=== PATIENT | female | born 1975 | race Caucasian/White ===

== ENCOUNTER 2016-06-02 21:11 | Emergency (ER) | payer OTHER ==
[2016-06-02 21:20] VITALS: RESP 16
[2016-06-02] MEDS ORDERED: ONDANSETRON 4 MG/2 ML VIAL IVP STA (21:45)
[2016-06-02] MEDS ORDERED: SODIUM CHLORIDE 0.9% 1,000 ML IV ONE (21:45)
--- NOTE | 2016-06-02 22:04 | ED ---
General Adult HPI - General Chief complaint: Neuro Symptoms/Deficit Stated complaint: light-headedness Time Seen by Provider: 06/02/16 21:27 Source: patient, EMS Mode of arrival: EMS Limitations: no limitations - History of Present Illness Initial comments: This is a 41-year-old female presents emergency department for lightheadedness. She states that it started this evening. She states that she was going to let her dogs out and also became very lightheaded and felt like she is going to pass out. She did not have a syncopal event. She sat down in her chair and had persistent lightheadedness and also had persistent lightheadedness when she laid down in her bed so she became concerned and decided come emergency department. She says that she has some associated nausea however has not vomited. She's been having a normal appetite. She does admit to urinary frequency however no dysuria. No vaginal bleeding or discharge. No vertigo or ataxia. No other complaints. - Related Data Home Medications Medication Instructions Recorded Confirmed Naproxen 500 mg PO Q12HR 06/02/16 06/02/16 Propranolol [Inderal] 10 mg PO BID 06/02/16 06/02/16 buPROPion SR [Wellbutrin Sr] 150 mg PO QAM 06/02/16 06/02/16 traZODone HCL [Desyrel] 100 mg PO HS 06/02/16 06/02/16 Previous Rx's Medication Instructions Recorded Nitrofurantoin Monohyd/M-Cryst 100 mg PO Q12HR #14 cap 06/02/16 [Macrobid] Allergies Allergy/AdvReac Type Severity Reaction Status Date / Time No Known Allergies Allergy Verified 06/02/16 21:26 Review of Systems ROS Statement: Those systems with pertinent positive or pertinent negative responses have been documented in the HPI. ROS Other: All systems not noted in ROS Statement are negative. Past Medical History Additional Past Medical History / Comment(s): scoliosis, heart murmur History of Any Multi-Drug Resistant Organisms: None Reported Past Surgical History: Appendectomy, Hernia Repair, Tubal Ligation Past Psychological History: Depression Smoking Status: Never smoker Past Alcohol Use History: None Reported Past Drug Use History: None Reported General Exam - General Exam Comments Initial Comments: Constitutional: Awake alert Appears comfortable Head: Normocephalic atraumatic Eyes: no conjunctival injection No scleral icterus EOMI Neck: No JVD Supple Heart: Regular rate rhythm normal S1-S2 no murmurs Lungs: Clear to auscultation bilaterally No wheezing No rales Abdomen: Soft nondistended nontender Extremities: Non edematous DP pulses intact Radial pulses intact Neuro: A&Ox3 nerves II through XII are grossly intact, 5 out of 5 strength in upper and lower extremities bilaterally, normal finger to nose and heel to pack testing, no ataxia with gait. Psych: Appropriate mood and affect Limitations: no limitations Course Vital Signs 06/02/16 21:15 Temperature 98.7 F Pulse Rate 74 Respiratory 16 Rate Blood Pressure 159/78 O2 Sat by Pulse 100 Oximetry EKG Findings - EKG Comments: EKG Findings:: EKG showing normal sinus rhythm with a rate of 70. No ST segment changes or T-wave inversions. QTC is 421. Other intervals are normal. No ectopy. Medical Decision Making - Medical Decision Making Is a 41-year-old female who presents emergency department for lightheadedness. The patient was evaluated and had no focal neurologic findings. She is given fluids and had improvement in her symptoms. She is able to ambulate around the department with complete resolution of symptoms. She also complained of urinary frequency. Her urine was suspicious for possible urinary tract infection. Given her symptoms of going to treat her with Macrobid twice a day for 7 days. She can follow with her primary doctor for reevaluation. She can return if she has worsening symptoms. All questions were answered. - Lab Data Result diagrams: 06/02/16 22:09 06/02/16 22:09 Lab Results 06/02/16 06/02/16 06/02/16 Range/Units 22:09 22:09 22:09 WBC 9.4 (3.8-10.6) k/uL RBC 4.78 (3.80-5.40) m/uL Hgb 13.8 (11.4-16.0) gm/dL Hct 40.6 (34.0-46.0) % MCV 85.0 (80.0-100.0) fL MCH 28.8 (25.0-35.0) pg MCHC 33.9 (31.0-37.0) g/dL RDW 12.4 (11.5-15.5) % Plt Count 313 (150-450) k/uL Neutrophils % 64 % Lymphocytes % 19 % Monocytes % 4 % Eosinophils % 10 % Basophils % 1 % Neutrophils # 6.0 (1.3-7.7) k/uL Lymphocytes # 1.8 (1.0-4.8) k/uL Monocytes # 0.4 (0-1.0) k/uL Eosinophils # 1.0 H (0-0.7) k/uL Basophils # 0.1 (0-0.2) k/uL Sodium 139 (137-145) mmol/L Potassium 3.9 (3.5-5.1) mmol/L Chloride 106 (98-107) mmol/L Carbon Dioxide 25 (22-30) mmol/L Anion Gap 8 mmol/L BUN 19 H (7-17) mg/dL Creatinine 0.74 (0.52-1.04) mg/dL Est GFR (MDRD) Af Amer >60 (>60 ml/min/1.73 sqM) Est GFR (MDRD) Non-Af >60 (>60 ml/min/1.73 sqM) Glucose 75 (74-99) mg/dL Calcium 9.1 (8.4-10.2) mg/dL Magnesium 1.8 (1.6-2.3) mg/dL Urine Color Urine Appearance (Clear) Urine pH (5.0-8.0) Ur Specific [place] (1.001-1.035) Urine Protein (Negative) Urine Glucose (UA) (Negative) Urine Ketones (Negative) Urine Blood (Negative) Urine Nitrate (Negative) Urine Bilirubin (Negative) Urine Urobilinogen (<2.0) mg/dL Ur Leukocyte Esterase (Negative) Urine RBC (0-5) /hpf Urine WBC (0-5) /hpf Ur Squamous Epith Cells (0-4) /hpf Urine Mucus (None) /hpf Urine HCG, Qual Not Detected (Not Detectd) 06/02/16 Range/Units 22:09 WBC (3.8-10.6) k/uL RBC (3.80-5.40) m/uL Hgb (11.4-16.0) gm/dL Hct (34.0-46.0) % MCV (80.0-100.0) fL MCH (25.0-35.0) pg MCHC (31.0-37.0) g/dL RDW (11.5-15.5) % Plt Count (150-450) k/uL Neutrophils % % Lymphocytes % % Monocytes % % Eosinophils % % Basophils % % Neutrophils # (1.3-7.7) k/uL Lymphocytes # (1.0-4.8) k/uL Monocytes # (0-1.0) k/uL Eosinophils # (0-0.7) k/uL Basophils # (0-0.2) k/uL Sodium (137-145) mmol/L Potassium (3.5-5.1) mmol/L Chloride (98-107) mmol/L Carbon Dioxide (22-30) mmol/L Anion Gap mmol/L BUN (7-17) mg/dL Creatinine (0.52-1.04) mg/dL Est GFR (MDRD) Af Amer (>60 ml/min/1.73 sqM) Est GFR (MDRD) Non-Af (>60 ml/min/1.73 sqM) Glucose (74-99) mg/dL Calcium (8.4-10.2) mg/dL Magnesium (1.6-2.3) mg/dL Urine Color Yellow Urine Appearance Cloudy H (Clear) Urine pH 5.5 (5.0-8.0) Ur Specific [place] 1.025 (1.001-1.035) Urine Protein Trace H (Negative) Urine Glucose (UA) Negative (Negative) Urine Ketones Negative (Negative) Urine Blood Negative (Negative) Urine Nitrate Negative (Negative) Urine Bilirubin Negative (Negative) Urine Urobilinogen <2.0 (<2.0) mg/dL Ur Leukocyte Esterase Small H (Negative) Urine RBC 3 (0-5) /hpf Urine WBC 6 H (0-5) /hpf Ur Squamous Epith Cells 5 H (0-4) /hpf Urine Mucus Rare H (None) /hpf Urine HCG, Qual (Not Detectd) Disposition Clinical Impression: UTI (urinary tract infection), Pre-syncope Disposition: HOME SELF-CARE Condition: Stable Instructions: Urinary Tract Infection in Women (ED) Prescriptions: Nitrofurantoin Monohyd/M-Cryst [Macrobid] 100 mg PO Q12HR #14 cap Referrals: Charity Dang MD [Primary Care Provider] - 1-2 days
[2016-06-02 22:13] LABS: Basophils # (A) 0.1 k/uL (0-0.2); Basophils % (A) 1 %; CH 29.8; CHCM 35.3; Eosinophils % (A) 10 %; HCT 40.6 % (34.0-46.0); HDW 2.61; HGB 13.8 gm/dL (11.4-16.0); Luc # (Auto) 0.13; Luc % (Auto) 1; Lymphocytes # (A) 1.8 k/uL (1.0-4.8); Lymphocytes % (A) 19 %; MCH 28.8 pg (25.0-35.0); MCHC 33.9 g/dL (31.0-37.0); Mean Platelet Volume 7.3; Monocytes # (A) 0.4 k/uL (0-1.0); Monocytes % (A) 4 %; Neutrophils % (A) 64 %; RBC 4.78 m/uL (3.80-5.40); RDW 12.4 % (11.5-15.5); WBC 9.4 k/uL (3.8-10.6)
[2016-06-02 22:18] LABS: Appearance,Urine Cloudy (Clear); Bilirubin,Urine Negative (Negative); Glucose,Urine (UA) Negative (Negative); Ketones,Urine Negative (Negative); Leukocyte Esterase,Urine Small (Negative); Mucus,Urine Rare /hpf; Nitrite,Urine Negative (Negative); PH, Urine 5.5 (5.0-8.0); Particle Count 8482; Protein,Urine Trace (Negative); RBC,Urine 3 /hpf (0-5); Specific Gravity,Urine 1.025 (1.001-1.035); Squamous Epithelial Cell,Urine 5 /hpf (0-4); UA Billing (MACRO vs. MICRO) MICRO; Urobilinogen,Urine <2.0 mg/dL (<2.0); WBC,Urine 6 /hpf (0-5)
[2016-06-02 22:22] LABS: Anion Gap 8 mmol/L; Blood Urea Nitrogen 19 mg/dL (7-17); Calcium 9.1 mg/dL (8.4-10.2); Carbon Dioxide 25 mmol/L (22-30); Chloride 106 mmol/L (98-107); Glucose 75 mg/dL (74-99); Magnesium 1.8 mg/dL (1.6-2.3); Non-African American GFR(MDRD) >60 (>60 ml/min/1.73 sqM); Potassium 3.9 mmol/L (3.5-5.1); Sodium 139 mmol/L (137-145)
[2016-06-02 22:59] VITALS: BP 118/78; PULSE 87; TEMP 97.6
== END 2016-06-02 22:58 | disposition home or self-care (01) ==
LOC: EC 21:11
DX: N39.0 Urinary tract infection, site not specified (principal); R55 Syncope and collapse; Z79.899 Other long term (current) drug therapy; F32.9 Major depressive disorder, single episode, unspecified
CPT/HCPCS: 36415; 93005; 80048; 83735; 85025; 81001; 81025; 99284; 96374; 96361; J2405

== ENCOUNTER → 2017-01-19 | Outpatient (CLI) | payer OTHER ==
[2017-01-19 16:39] LABS: Blood Urea Nitrogen 15 mg/dL (7-17); Non-African American GFR(MDRD) >60 (>60 ml/min/1.73 sqM)
--- NOTE | 2017-01-19 21:13 | MR ---
EXAMINATION TYPE: MR lumbar spine wo con DATE OF EXAM: 01/19/2017 COMPARISON: NONE HISTORY: Low back pain per order. Pain since December 2016 per patient. TECHNIQUE: Multiplanar, multisequence imaging of the lumbar spine is performed without IV contrast. FINDINGS: Sagittal images of the lumbar spine show vertebral body heights and alignment to appear sat isfactory. There is disc desiccation at L4-L5 and L5-S1 levels. Disc space heights are maintained. No large posterior disc herniations are seen on sagittal images. The conus medullaris is slightly high in position ending at inferior T12 level. No suspicious signal is present. No abnormal clumping of l umbosacral nerve roots is seen. The bone marrow signal intensity is within normal limits. No signific ant spurring is noted. Axial images beginning at labeled T11-T12 level which appears within normal limits. Axial images at T 12-L1, L1-L2, and L2-L3 levels are felt within normal limits. Axial images at L3-L4 level show mild facet degenerative changes bilaterally on axial image 12, bilat eral neural foramina remain patent. Axial images at L4-L5 level show mild to moderate facet degenerative changes bilaterally. There is no significant disc herniation. Spinal canal is preserved. Bilateral neural foramina are patent. Axial images at L5-S1 level show mild to moderate right greater than left facet degenerative changes. No significant disc herniation is seen. Spinal canal is preserved. Bilateral neural foramina remain patent. Paraspinal muscle bulk is fairly well preserved. No suspicious retroperitoneal findings are noted. IMPRESSION: Some multilevel facet degenerative changes in the mid to lower lumbar spine as detailed a taylor.
--- NOTE | 2017-01-19 21:18 | MR ---
EXAMINATION TYPE: MR brain wo/w con DATE OF EXAM: 01/19/2017 COMPARISON: MRI brain January 28, 2016. HISTORY: White matter changes TECHNIQUE: Multiplanar, multisequence images of the brain and brainstem is performed without and with IV contras t, utilizing 9.5 mL intravenous Gadavist gadolinium contrast is administered intravenously. Demyelin ating disease protocol with additional Sagittal Flair sequence performed. FINDINGS: T2 Lesions Present : Yes Approximate Number of Lesions: Approximately 10-15 Locations Identified : Predominantly deep and periventricular lesions Size of Reference Lesion(s): 1. 0.4 cm x 0.3 cm x 0.3 cm on axial image 19 and sagittal image 9 left posterior frontal deep white matter lesion at level of mcelroy radiata stable. Enhancing Lesion(s) Present: No Change from Prior: Stable accounting for technical differences Diffusion weighted images demonstrate no evidence of a recent infarct or other diffusion abnormality. There is no worrisome extra-axial fluid collection. The ventricular system and cisternal spaces ar e normal in size and appearance. The brain volume is age appropriate. Midline structures demonstrate normal morphology. The craniocervical junction appears within normal limits. Post contrast images demonstrate no abnormal enhancement. The dural venous sinuses appear pa tent. The visualized sinuses are clear and the globes are intact. IMPRESSION: Mild nonspecific white matter changes redemonstrated felt stable. No new or enhancing les ions are seen.
== END | disposition home or self-care (01) ==
LOC: RADMRIMAIN 16:04
PROVIDERS: ATTEND Nurse Practitioner Acute Care
DX: M47.816 Spondylosis without myelopathy or radiculopathy, lumbar region (principal); R90.82 White matter disease, unspecified
CPT/HCPCS: 82565; 84520; 70553; 72148; A9577

== ENCOUNTER 2017-05-24 19:47 | Emergency (ER) | payer OTHER ==
[2017-05-24 19:53] VITALS: RESP 18
[2017-05-24] MEDS ORDERED: LORazepam 2 MG/ML INJ IV STA (20:08)
[2017-05-24] MEDS ORDERED: MECLIZINE 12.5 MG TAB PO STA (20:08)
[2017-05-24] MEDS ORDERED: SODIUM CHLORIDE 0.9% 1,000 ML IV STA (20:08)
--- NOTE | 2017-05-24 20:26 | ED ---
Dizziness HPI - General Chief Complaint: Dizziness Stated Complaint: dizziness Time Seen by Provider: 05/24/17 19:56 Source: patient, RN notes reviewed Mode of arrival: wheelchair Limitations: no limitations - History of Present Illness Initial Comments: This is a 42-year-old female presents to the emergency department chief complaint of dizziness. Patient states that approximately 5:30/6 PM this evening, after eating dinner she was sitting down relaxing in her chair. She states that she suddenly felt like the room was spinning. She admits to associated nausea. Patient states that dizziness is made worse when sitting up and walking. She states that sometimes she has some double vision. Denies any hearing changes. Patient states she has had a similar episode in the past but did not seek medical care. Denies fever, chills, chest pain, shortness of breath , abdominal pain, vomiting, constipation or diarrhea, dysuria or hematuria, numbness or tingling, or headache. - Related Data Home Medications Medication Instructions Recorded Confirmed Naproxen 500 mg PO BID 06/02/16 05/24/17 Propranolol [Inderal] 40 mg PO BID 05/24/17 05/24/17 Venlafaxine HCl [Effexor XR] 150 mg PO DAILY@0800 05/24/17 05/24/17 risperiDONE [RisperDAL] 1 mg PO HS 05/24/17 05/24/17 traZODone HCL 150 mg PO HS 05/24/17 05/24/17 Previous Rx's Medication Instructions Recorded Meclizine [Antivert] 25 mg PO BID #10 tab 05/24/17 Allergies Allergy/AdvReac Type Severity Reaction Status Date / Time No Known Allergies Allergy Verified 05/24/17 20:12 Review of Systems ROS Statement: Those systems with pertinent positive or pertinent negative responses have been documented in the HPI. ROS Other: All systems not noted in ROS Statement are negative. Past Medical History Additional Past Medical History / Comment(s): scoliosis, heart murmur History of Any Multi-Drug Resistant Organisms: None Reported Past Surgical History: Appendectomy, Hernia Repair, Tubal Ligation Past Psychological History: Anxiety, Depression Smoking Status: Never smoker Past Alcohol Use History: None Reported Past Drug Use History: None Reported General Exam - General Exam Comments Initial Comments: General: Awake and alert, well-developed; in no apparent distress. HEENT: Head atraumatic, normocephalic. Pupils are equal, round and reactive to light. Extraocular movements intact. No nystagmus noted. Oropharynx moist without erythema or exudate. Bilateral TMs pearly without effusion. Neck: Supple. Normal ROM. Cardiovascular: Regular rate and rhythm. No murmurs, rubs or gallops. Chest symmetrical. Respiratory: Lungs clear to auscultation bilaterally. No wheezes, rales or rhonchi. Normal respiratory effort with no use of accessory muscles. Musculoskeletal: Normal ROM, no tenderness bilateral upper and lower extremities. Skin: [place], warm and dry without rashes or lesions. Neurological: Alert and oriented x3. CN II-XII grossly intact. No focal neuro deficits. Psychiatric: Normal mood and affect. No overt signs of depression or anxiety noted. Limitations: no limitations Course Vital Signs 05/24/17 19:50 Temperature 97.9 F Pulse Rate 57 L Respiratory 18 Rate Blood Pressure 138/76 O2 Sat by Pulse 100 Oximetry - Reevaluation(s) Reevaluation #1: After given a dose of meclizine and Ativan, patient states that she is no longer experiencing any dizziness. She is lying on the ED stretcher reading a magazine. 05/24/17 21:06 05/24/17 21:08 Medical Decision Making - Medical Decision Making This is a 42-year-old female who presented to the emergency department with chief complaint of dizziness. Patient had sudden onset of dizziness, with feeling like the room was spinning. She admitted to associated nausea. After given Ativan and meclizine in the emergency department, patient admits to feeling better is no longer experiencing any dizziness. She will be discharged home with a prescription for meclizine. She is to follow-up with her primary care provider in 1-2 days. Patient is in agreement with plan and voices understanding. All questions were answered. Disposition Clinical Impression: Peripheral vertigo Disposition: HOME SELF-CARE Condition: Good Instructions: Vertigo (ED) Additional Instructions: Please take medications as prescribed. Please follow up with primary care provider within 1-2 days. Return to emergency department if symptoms should worsen or any concerns arise. Prescriptions: Meclizine [Antivert] 25 mg PO BID #10 tab Referrals: Charity Dang MD [Primary Care Provider] - 1-2 days Time of Disposition: 21:26
[2017-05-24 21:42] VITALS: BP 143/97; PULSE 65; TEMP 97.6
== END 2017-05-24 21:43 | disposition home or self-care (01) ==
LOC: EC 19:47
DX: H81.399 Other peripheral vertigo, unspecified ear (principal); H53.2 Diplopia; F32.9 Major depressive disorder, single episode, unspecified; F41.9 Anxiety disorder, unspecified; Z79.1 Long term (current) use of non-steroidal anti-inflammatories (NSAID); Z79.899 Other long term (current) drug therapy; Z87.39 Personal history of other diseases of the musculoskeletal system and connective tissue; Z86.79 Personal history of other diseases of the circulatory system
CPT/HCPCS: 99283; 96374; 96361; J2060

== ENCOUNTER 2017-10-08 19:11 | Emergency (ER) | payer OTHER ==
[2017-10-08] MEDS ORDERED: SODIUM CHLORIDE 0.9% 1,000 ML IV ONE (19:42)
[2017-10-08 20:02] LABS: Basophils # (A) 0.1 k/uL (0-0.2); Basophils % (A) 1 %; Eosinophils # (A) 0.4 k/uL (0-0.7); Eosinophils % (A) 5 %; HCT 40.9 % (34.0-46.0); HGB 14.1 gm/dL (11.4-16.0); Lymphocytes % (A) 22 %; MCHC 34.4 g/dL (31.0-37.0); MCV 84.2 fL (80.0-100.0); Monocytes # (A) 0.4 k/uL (0-1.0); Monocytes % (A) 4 %; Neutrophils # (A) 6.2 k/uL (1.3-7.7); Neutrophils % (A) 67 %; Platelet Count 364 k/uL (150-450); RBC 4.86 m/uL (3.80-5.40); RDW 12.6 % (11.5-15.5); WBC 9.3 k/uL (3.8-10.6)
[2017-10-08 20:18] LABS: Anion Gap 15 mmol/L; Blood Urea Nitrogen 23 mg/dL (7-17); Calcium 9.7 mg/dL (8.4-10.2); Carbon Dioxide 21 mmol/L (22-30); Chloride 104 mmol/L (98-107); Glucose 86 mg/dL (74-99); Potassium 3.9 mmol/L (3.5-5.1); Sodium 140 mmol/L (137-145)
--- NOTE | 2017-10-08 21:04 | ED ---
General Adult HPI - General Chief complaint: Recheck/Abnormal Lab/Rx Stated complaint: High BP Time Seen by Provider: 10/08/17 19:34 Source: patient Mode of arrival: ambulatory Limitations: no limitations - History of Present Illness Initial comments: 42-year-old female with past medical history of hypertension presented for evaluation of abnormal blood pressure measurement at [facility] as well as symptoms of near sink be recently. She states that when she was at [facility] her diastolic was in the 120s which prompted her to come the ED for further evaluation at the recommendation of one of the employees. Upon arrival she had a normal blood pressure reading however she further went on to state that she has been having some episodes of near syncope/lightheadedness for the last few days. She states that these will last anywhere from 5-10 minutes she' ll feel like she is about to pass out. She denies any sensation of the room spinning or head spinning. She does not treat these episodes with anything and she states that they go away spontaneously. There is no associated symptoms with him and she denies any chest pain, shortness of breath, nausea/vomiting, diaphoresis, or abdominal pain. She is never happened before and does not been evaluated for them. - Related Data Home Medications Medication Instructions Recorded Confirmed Naproxen 500 mg PO BID PRN 06/02/16 10/08/17 Venlafaxine HCl [Effexor XR] 150 mg PO DAILY@0800 05/24/17 10/08/17 risperiDONE [RisperDAL] 1 mg PO HS 05/24/17 10/08/17 traZODone HCL 150 mg PO HS 05/24/17 10/08/17 Propranolol [Inderal] 10 mg PO BID 10/08/17 10/08/17 Allergies Allergy/AdvReac Type Severity Reaction Status Date / Time No Known Allergies Allergy Verified 10/08/17 20:13 Review of Systems ROS Statement: Those systems with pertinent positive or pertinent negative responses have been documented in the HPI. ROS Other: All systems not noted in ROS Statement are negative. Constitutional: Denies: fever, chills Eyes: Denies: eye pain, vision change ENT: Denies: ear pain, throat pain Respiratory: Denies: cough, dyspnea Cardiovascular: Denies: chest pain, palpitations Endocrine: Denies: fatigue, polydipsia, polyuria Gastrointestinal: Denies: abdominal pain, nausea, vomiting Genitourinary: Denies: urgency, dysuria Musculoskeletal: Denies: back pain, arthralgia, myalgia Skin: Denies: rash, lesions Neurological: Reports: other (Near syncope). Denies: headache, weakness Psychiatric: Denies: anxiety, depression Hematological/Lymphatic: Denies: easy bleeding, easy bruising Past Medical History Additional Past Medical History / Comment(s): scoliosis, heart murmur History of Any Multi-Drug Resistant Organisms: None Reported Past Surgical History: Appendectomy, Hernia Repair, Tubal Ligation Past Psychological History: Anxiety, Depression Smoking Status: Never smoker Past Alcohol Use History: None Reported Past Drug Use History: None Reported General Exam Limitations: no limitations General appearance: alert, in no apparent distress Head exam: Present: atraumatic, normocephalic, normal inspection Eye exam: Present: normal appearance, PERRL, EOMI. Absent: scleral icterus, conjunctival injection, periorbital swelling ENT exam: Present: normal exam, mucous membranes moist Neck exam: Present: normal inspection. Absent: tenderness, meningismus, lymphadenopathy Respiratory exam: Present: normal lung sounds bilaterally. Absent: respiratory distress, wheezes, rales, rhonchi, stridor Cardiovascular Exam: Present: normal rhythm, tachycardia GI/Abdominal exam: Present: soft, normal bowel sounds. Absent: distended, tenderness, guarding, rebound, rigid Rectal exam: Present: deferred Extremities exam: Present: normal inspection, full ROM, normal capillary refill. Absent: tenderness, pedal edema, joint swelling, calf tenderness Back exam: Present: normal inspection Neurological exam: Present: alert, oriented X3, CN II-XII intact Psychiatric exam: Present: normal affect, normal mood Skin exam: Present: warm, dry, intact, normal color. Absent: rash Course Vital Signs 10/08/17 10/08/17 10/08/17 19:18 20:39 20:47 Temperature 98.4 F Pulse Rate 120 H 95 Pulse Rate [ 103 H Right Sitting] Pulse Rate [ 100 Right Standing] Pulse Rate [ 95 Right Supine] Respiratory 18 18 16 Rate Blood Pressure 121/76 131/77 Blood Pressure 128/73 [Right Arm Sitting] Blood Pressure 136/80 [Right Arm Standing] Blood Pressure 117/68 [Right Arm Supine] O2 Sat by Pulse 97 97 97 Oximetry EKG Findings - EKG Comments: EKG Findings:: #Sugar with a ventricular rate of 97. Medical Decision Making - Medical Decision Making 42-year-old female presented for evaluation of hypotension and near syncope. On physical examination there are no acute abnormalities noted. The patient is GCS of 15 and O 4 and cranial nerves II through XII are intact without focal neurologic deficit. Lungs are clear to auscultation bilaterally and the abdomen is soft and non-peritoneal without signs of guarding rigidity or rebound. Exam is benign. Labs obtained which showed no acute abnormalities and EKG is shown below. She is in related to the department and was at baseline and never had any episodes of near-syncope. She was informed of all results and through shared decision making it was determined that she would be discharged with instructions to follow-up with her primary care physician but return to this facility if her symptoms should worsen or persist. The patient acknowledged an understanding of all information provided and agreed with this plan of care. - Lab Data Result diagrams: 10/08/17 19:51 10/08/17 19:51 Lab Results 10/08/17 10/08/17 Range/Units 19:51 19:51 WBC 9.3 (3.8-10.6) k/uL RBC 4.86 (3.80-5.40) m/uL Hgb 14.1 (11.4-16.0) gm/dL Hct 40.9 (34.0-46.0) % MCV 84.2 (80.0-100.0) fL MCH 29.0 (25.0-35.0) pg MCHC 34.4 (31.0-37.0) g/dL RDW 12.6 (11.5-15.5) % Plt Count 364 (150-450) k/uL Neutrophils % 67 % Lymphocytes % 22 % Monocytes % 4 % Eosinophils % 5 % Basophils % 1 % Neutrophils # 6.2 (1.3-7.7) k/uL Lymphocytes # 2.0 (1.0-4.8) k/uL Monocytes # 0.4 (0-1.0) k/uL Eosinophils # 0.4 (0-0.7) k/uL Basophils # 0.1 (0-0.2) k/uL Sodium 140 (137-145) mmol/L Potassium 3.9 (3.5-5.1) mmol/L Chloride 104 (98-107) mmol/L Carbon Dioxide 21 L (22-30) mmol/L Anion Gap 15 mmol/L BUN 23 H (7-17) mg/dL Creatinine 0.81 (0.52-1.04) mg/dL Est GFR (CKD-EPI)AfAm >90 (>60 ml/min/1.73 sqM) Est GFR (CKD-EPI)NonAf 89 (>60 ml/min/1.73 sqM) Glucose 86 (74-99) mg/dL Calcium 9.7 (8.4-10.2) mg/dL Disposition Clinical Impression: Lightheaded Disposition: HOME SELF-CARE Condition: Stable Instructions: Near Syncope (ED), Lightheadedness (ED) Additional Instructions: Please follow up with her primary care physician within the next 24 hours for further treatment and evaluation. If she continued to have worsening symptoms that should include chest pain, shortness breath, nausea, vomiting, diaphoresis , fevers, chills with your lightheadedness and dizziness presents return to the ED as well. Is patient prescribed a controlled substance at d/c from ED?: No Referrals: Charity Dang MD [Primary Care Provider] - 1-2 days Time of Disposition: 21:04
[2017-10-08 21:23] VITALS: BP 136/80; PULSE 89; RESP 18; TEMP 98.2
== END 2017-10-08 21:22 | disposition home or self-care (01) ==
LOC: EC 19:11
DX: R42 Dizziness and giddiness (principal); R40.2412 Glasgow coma scale score 13-15, at arrival to emergency department; R00.0 Tachycardia, unspecified; F32.9 Major depressive disorder, single episode, unspecified; F41.9 Anxiety disorder, unspecified; Z79.899 Other long term (current) drug therapy; Z86.79 Personal history of other diseases of the circulatory system
CPT/HCPCS: 36415; 80048; 85025; 93005; 96360; 99283

== ENCOUNTER → 2018-01-27 | Outpatient (CLI) | payer OTHER ==
--- NOTE | 2018-01-27 18:18 | MR ---
EXAMINATION TYPE: MR brain wo/w con DATE OF EXAM: 01/27/2018 COMPARISON: 01/19/2017 HISTORY: MS protocol, visual disturbance, compare to prior MR 01-19-17 CONTRAST: Performed utilizing 9 mL intravenous Gadavist gadolinium contrast. TECHNIQUE: Multiplanar, multisequence imaging of the brain is performed on a 3.0 Audra magnet. Demye linating disease protocol with additional Sagittal Flair sequence is performed. Study is performed wi thin 24 hours of arrival to the hospital. FINDINGS: T2 White Matter Lesions Present : Yes Approximate Number of Lesions: Multiple scattered Locations Identified : Periventricular subcortical and centrum semiovale Size of Largest Lesion(s): 1. 0.5 x 0.5 x 0.3 cm. Location: Left mcelroy radiata parietal lobe Sequence 501 Image 19 (axial) and Sequence 601 Image 7 (sagittal). This has enlarged 1 mm from the comparison. 2. 0.4 x 0.5 x 0.7 cm. Location: Right mcelroy radiata Sequence 501 Image 18 (axial) and Sequence 60 1 Image 22 (sagittal). This appears stable. Enhancing Lesion(s) Present: No Change from Prior: Number of lesions appear stable. The left reference is increased in size. Majority of the lesions are stable. Prior right frontal lobe has diminished in size. Series 501 image 18. Diffusion-weighted imaging is performed. No abnormal hyperintensity is present to suggest an acute i ntracranial infarct or acute ischemic change. Ventricles and sulci are appropriate for the patient age. The right A1 segment is hypoplastic. Normal vascular flow voids are otherwise present. No abnormal enhancement is present on post contrast images. . The visualized sinuses are clear. Visu alized orbits are unremarkable. IMPRESSION: 1. Number of lesions appear stable. There is waxing and waning of lesion sizes compared to 01/19/2017 .
== END | disposition home or self-care (01) ==
LOC: RADMRIMAIN 16:06
PROVIDERS: ATTEND Psychiatry & Neurology Neurology
DX: G93.89 Other specified disorders of brain (principal); H53.9 Unspecified visual disturbance
CPT/HCPCS: 70553; A9581

== ENCOUNTER 2018-02-07 17:36 | Emergency (ER) | payer OTHER ==
--- NOTE | 2018-02-07 18:28 | ED ---
Psych HPI - General Chief Complaint: Psychiatric Symptoms Stated Complaint: SUICIDAL, OFF MEDS Time Seen by Provider: 02/07/18 18:02 Source: patient, RN notes reviewed Mode of arrival: ambulatory Limitations: no limitations - History of Present Illness Initial Comments: This is a 42-year-old female who presents to the emergency department for mental health evaluation. Patient states that she has a history of depression. She states that she ran out of her medications 3 days ago because she did not have a refill. She states that she was taking Effexor, trazodone and Risperdal. She reports suicidal ideation without plan. Denies homicidal ideation. Denies auditory or visual hallucinations. He denies alcohol or illicit drug use. Denies any recent illnesses or infections. Denies fevers or chills, chest pain or shortness of breath, abdominal pain, nausea or vomiting. - Related Data Home Medications Medication Instructions Recorded Confirmed Naproxen 500 mg PO BID PRN 06/02/16 10/08/17 Venlafaxine HCl [Effexor XR] 150 mg PO DAILY@0800 05/24/17 10/08/17 risperiDONE [RisperDAL] 1 mg PO HS 05/24/17 10/08/17 traZODone HCL 150 mg PO HS 05/24/17 10/08/17 Propranolol [Inderal] 10 mg PO BID 10/08/17 10/08/17 Allergies Allergy/AdvReac Type Severity Reaction Status Date / Time No Known Allergies Allergy Verified 02/07/18 17:46 Review of Systems ROS Statement: Those systems with pertinent positive or pertinent negative responses have been documented in the HPI. ROS Other: All systems not noted in ROS Statement are negative. Past Medical History Additional Past Medical History / Comment(s): scoliosis, heart murmur History of Any Multi-Drug Resistant Organisms: None Reported Past Surgical History: Appendectomy, Hernia Repair, Tubal Ligation Past Psychological History: Anxiety, Depression, Schizoaffective Disorder Smoking Status: Never smoker Past Alcohol Use History: None Reported Past Drug Use History: None Reported General Exam - General Exam Comments Initial Comments: General: Awake and alert, well-developed; in no apparent distress. Disheveled in appearance. HEENT: Head atraumatic, normocephalic. Pupils are equal, round and reactive to light. Extraocular movements intact. Oropharynx moist without erythema or exudate. Neck: Supple. Normal ROM. Cardiovascular: Regular rate and rhythm. No murmurs, rubs or gallops. Chest symmetrical. Respiratory: Lungs clear to auscultation bilaterally. No wheezes, rales or rhonchi. Normal respiratory effort with no use of accessory muscles. Abdomen: Soft, non-tender, non-distended. No rigidity, rebound or guarding. Musculoskeletal: Normal ROM, no tenderness bilateral upper and lower extremities. Ambulating normally. Skin: [place], warm and dry without rashes or lesions. Neurological: Alert and oriented x3. CN II-XII grossly intact. Speech is fluent and answers are appropriate. No focal neuro deficits. Psychiatric: Anxious. Tearful. Normal judgment. Limitations: no limitations Course Vital Signs 02/07/18 02/07/18 17:41 21:18 Temperature 98 F 98.1 F Pulse Rate 79 65 Respiratory 18 16 Rate Blood Pressure 127/87 134/80 O2 Sat by Pulse 98 100 Oximetry Medical Decision Making - Medical Decision Making This is a 42-year-old female who presents to the emergency department with chief complaint of depression. Patient states she has been out of her antidepressants for the past 3 days. She admits to suicidal ideation without plans. Patient was evaluated by EPS who is recommending outpatient treatment. Patient is to follow up with [facility] tomorrow. She is to also follow up with Dr. Dang for medication refills. Patient contracts for safety and denies any suicidal plans. Her vital signs have been stable and she is in no acute distress. She will be discharged home at this time. She is in agreement and voices understanding. All questions were answered. - Lab Data Lab Results 02/07/18 Range/Units 18:00 Urine Opiates Screen Not Detected (NotDetected) Ur Oxycodone Screen Not Detected (NotDetected) Urine Methadone Screen Not Detected (NotDetected) Ur Propoxyphene Screen Not Detected (NotDetected) Ur Barbiturates Screen Not Detected (NotDetected) U Tricyclic Antidepress Not Detected (NotDetected) Ur Phencyclidine Scrn Not Detected (NotDetected) Ur Amphetamines Screen Not Detected (NotDetected) U Methamphetamines Scrn Not Detected (NotDetected) U Benzodiazepines Scrn Detected H (NotDetected) Urine Cocaine Screen Not Detected (NotDetected) U Marijuana (THC) Screen Not Detected (NotDetected) Disposition Clinical Impression: Depression Disposition: HOME SELF-CARE Condition: Good Instructions: Depression (ED) Additional Instructions: As discussed, please follow up with [facility] tomorrow. Please also follow-up with Dr. Dang for medication refills. Please follow up with primary care provider within 1-2 days. Return to emergency department if symptoms should worsen or any concerns arise. Is patient prescribed a controlled substance at d/c from ED?: No Referrals: Charity Dang MD [Primary Care Provider] - 1-2 days Time of Disposition: 21:36
[2018-02-07 19:00] LABS: Amphetamine Screen,Urine Not Detected (NotDetected); Barbiturate Screen,Urine Not Detected (NotDetected); Benzodiazepines Screen,Urine Detected (NotDetected); Cocaine Screen,Urine Not Detected (NotDetected); Methadone Screen, Urine Not Detected (NotDetected); Opiate Screen,Urine Not Detected (NotDetected); Oxycodone Screen, Urine Not Detected (NotDetected); Phencyclidine Screen,Urine Not Detected (NotDetected); Tricyclic Antidepressant,Urine Not Detected (NotDetected); Urn Cannabinoid Scrn Not Detected (NotDetected)
[2018-02-07 21:22] VITALS: BP 134/80; PULSE 65; RESP 16; TEMP 98.1
[2018-02-07] MEDS ORDERED: risperiDONE 2 MG TAB PO STA (21:32)
[2018-02-07] MEDS ORDERED: VENLAFAXINE HCL ER 75 MG CAP PO STA (21:33)
== END 2018-02-07 21:52 | disposition home or self-care (01) ==
LOC: EC 17:36
DX: F32.9 Major depressive disorder, single episode, unspecified (principal); R45.851 Suicidal ideations; F41.9 Anxiety disorder, unspecified; Z79.899 Other long term (current) drug therapy; Z86.79 Personal history of other diseases of the circulatory system
CPT/HCPCS: 80306; 82075; 99285

== ENCOUNTER → 2018-04-06 | Outpatient (CLI) | payer OTHER ==
[2018-04-06 23:39] LABS: Hemoglobin A1C 5.1 % (4.0-6.0)
== END | disposition home or self-care (01) ==
LOC: LABWHC1 11:41
PROVIDERS: ATTEND Psychiatry & Neurology Psychiatry
DX: F25.0 Schizoaffective disorder, bipolar type (principal); Z79.899 Other long term (current) drug therapy
CPT/HCPCS: 36415; 83036

== ENCOUNTER 2018-07-13 16:14 | Inpatient (IN) | payer MEDICAID, OTHER ==
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
[2018-07-13 17:17] LABS: Amphetamine Screen,Urine Not Detected (NotDetected); Barbiturate Screen,Urine Not Detected (NotDetected); Benzodiazepines Screen,Urine Not Detected (NotDetected); Cocaine Screen,Urine Not Detected (NotDetected); Methadone Screen, Urine Not Detected (NotDetected); Opiate Screen,Urine Not Detected (NotDetected); Oxycodone Screen, Urine Not Detected (NotDetected); Phencyclidine Screen,Urine Not Detected (NotDetected); Tricyclic Antidepressant,Urine Not Detected (NotDetected); Urn Cannabinoid Scrn Not Detected (NotDetected)
[2018-07-13 20:28] LABS: Acetaminophen <10.0 ug/mL; Alcohol <10 mg/dL; Anion Gap 4 mmol/L; Blood Urea Nitrogen 10 mg/dL (7-17); Calcium 9.3 mg/dL (8.4-10.2); Carbon Dioxide 30 mmol/L (22-30); Chloride 105 mmol/L (98-107); Glucose 113 mg/dL (74-99); Potassium 3.8 mmol/L (3.5-5.1); Salicylate <1.0 mg/dL; Sodium 139 mmol/L (137-145)
[2018-07-13 20:29] LABS: Basophils # (A) 0.1 k/uL (0-0.2); Basophils % (A) 2 %; Eosinophils # (A) 0.8 k/uL (0-0.7); Eosinophils % (A) 11 %; HCT 37.7 % (34.0-46.0); HGB 12.5 gm/dL (11.4-16.0); Lymphocytes # (A) 1.9 k/uL (1.0-4.8); Lymphocytes % (A) 26 %; MCH 29.1 pg (25.0-35.0); MCHC 33.1 g/dL (31.0-37.0); MCV 87.9 fL (80.0-100.0); Mean Platelet Volume 6.3; Monocytes # (A) 0.4 k/uL (0-1.0); Monocytes % (A) 6 %; Neutrophils # (A) 3.8 k/uL (1.3-7.7); Neutrophils % (A) 53 %; Platelet Count 311 k/uL (150-450); RBC 4.29 m/uL (3.80-5.40); RDW 12.9 % (11.5-15.5); WBC 7.2 k/uL (3.8-10.6)
[2018-07-13] MEDS ORDERED: DOCUSATE ORAL SOLN 100 MG/10 ML CUP PO PRN (21:20)
[2018-07-13] MEDS ORDERED: LORazepam 1 MG TAB PO PRN (21:47)
[2018-07-13] MEDS ORDERED: ZIPRASIDONE 20 MG VIAL IM PRN (21:47)
[2018-07-13] MEDS ORDERED: ACETAMINOPHEN TAB 325 MG TAB PO PRN (21:47)
[2018-07-13] MEDS ORDERED: MAG HYDROX/AL HYDROX/SIMETH 30 ML CUP PO PRN (21:47)
[2018-07-13] MEDS ORDERED: MAGNESIUM HYDROXIDE 2,400 MG/10 ML CUP PO PRN (21:47)
[2018-07-13] MEDS ORDERED: LORazepam 2 MG/ML INJ IM PRN (21:50)
[2018-07-13] MEDS: risperiDONE 1 MG TAB PO SCH (22:18)
[2018-07-14] MEDS ORDERED: NICOTINE 14MG/24HR PATCH TRANSDERM SCH (09:00)
[2018-07-14] MEDS: ASPIRIN 81 MG PO SCH (09:10)
[2018-07-14] MEDS: VENLAFAXINE HCL ER 75 MG CAP PO SCH (09:10)
[2018-07-14 09:31] LABS: ALT 21 U/L (9-52); AST 17 U/L (14-36); Alkaline Phosphatase 62 U/L (38-126); Anion Gap 8 mmol/L; Blood Urea Nitrogen 11 mg/dL (7-17); Calcium 9.1 mg/dL (8.4-10.2); Carbon Dioxide 27 mmol/L (22-30); Chloride 105 mmol/L (98-107); Cholesterol 171 mg/dL (<200); Glucose 135 mg/dL (74-99); HDL Cholesterol 48 mg/dL (40-60); LDL Cholesterol,Calculated 96 mg/dL (0-99); Potassium 4.1 mmol/L (3.5-5.1); Sodium 140 mmol/L (137-145); Total Bilirubin 0.5 mg/dL (0.2-1.3); Total Protein 7.2 g/dL (6.3-8.2); Triglycerides 137 mg/dL (<150)
[2018-07-14] MEDS ORDERED: traZODone HCL 100 MG TAB PO PRN (13:57)
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
[2018-07-14] MEDS ORDERED: IBUPROFEN 400 MG TAB PO PRN (15:06)
--- NOTE | 2018-07-14 15:09 | P.CONS ---
History of Present Illness - Reason for Consult Left ankle swelling. - History of Present Illness Patient is a pleasant 41-year-old the female came in with the depression and suicidal thoughts was admitted to psychiatric floor patient had a fall mechanical about the a week ago is complaining of swelling in the left leg but no pain. Patient the active and passive movements are not restricted and are not painful patient may have a mild sprain should be good with anti- inflammatory medication but I'll rule out any fracture. Patient denied any fever chills nausea vomiting abdominal pain cough is not a smoker. Review of Systems REVIEW OF SYSTEMS: CONSTITUTIONAL: No fever, no malaise, no fatigue. HEENT: No recent visual problems or hearing problems. Denied any sore throat. CARDIOVASCULAR: No chest pain, orthopnea, PND, no palpitations, no syncope. PULMONARY: No shortness of breath, no cough, no hemoptysis. GASTROINTESTINAL: No diarrhea, no nausea, no vomiting, no abdominal pain. NEUROLOGICAL: No headaches, no weakness, no numbness. HEMATOLOGICAL: Denies any bleeding or petechiae. GENITOURINARY: Denies any burning micturition, frequency, or urgency. MUSCULOSKELETAL/RHEUMATOLOGICAL: Denies any joint pain, swelling, or any muscle pain. ENDOCRINE: Denies any polyuria or polydipsia. The rest of the 14-point review of systems is negative. Past Medical History Additional Past Medical History / Comment(s): scoliosis, heart murmur History of Any Multi-Drug Resistant Organisms: None Reported Past Surgical History: Appendectomy, Hernia Repair, Tubal Ligation Past Psychological History: Anxiety, Depression, Schizoaffective Disorder Smoking Status: Never smoker Past Alcohol Use History: None Reported Past Drug Use History: None Reported Medications and Allergies Home Medications Medication Instructions Recorded Confirmed Type Aspirin EC [Ecotrin Low Dose] 81 mg PO DAILY 07/13/18 07/13/18 History Colace 50mg 50 mg PO DAILY PRN 07/13/18 07/13/18 History Venlafaxine HCl [Effexor XR] 225 mg PO DAILY 07/13/18 07/13/18 History risperiDONE 3 mg PO HS 07/13/18 07/13/18 History traZODone HCL [Desyrel] 400 mg PO HS 07/13/18 07/13/18 History Allergies Allergy/AdvReac Type Severity Reaction Status Date / Time No Known Allergies Allergy Verified 07/13/18 19:41 Physical Exam Vitals: Vital Signs Temp Pulse Pulse Pulse Resp BP BP 07/14/18 06:52 98.3 F 70 16 07/13/18 22:19 100 134/88 07/13/18 20:45 97.5 F L 81 16 07/13/18 20:31 77 16 131/82 07/13/18 16:21 97.6 F 98 18 140/86 BP Pulse Ox 07/14/18 06:52 140/76 07/13/18 22:19 07/13/18 20:45 142/89 99 07/13/18 20:31 99 07/13/18 16:21 98 PHYSICAL EXAMINATION: GENERAL: The patient is alert and oriented x3, not in any acute distress. Well developed, well nourished. HEENT: Pupils are round and equally reacting to light. EOMI. No scleral icterus. No conjunctival pallor. Normocephalic, atraumatic. No pharyngeal erythema. No thyromegaly. CARDIOVASCULAR: S1 and S2 present. No murmurs, rubs, or gallops. PULMONARY: Chest is clear to auscultation, no wheezing or crackles. ABDOMEN: Soft, nontender, nondistended, normoactive bowel sounds. No palpable organomegaly. MUSCULOSKELETAL: Left ankle swelling without any restriction of active passive movements of the left ankle EXTREMITIES: No cyanosis, clubbing, or pedal edema. NEUROLOGICAL: Gross neurological examination did not reveal any focal deficits. SKIN: No rashes. Results CBC & Chem 7: 07/13/18 19:49 07/14/18 08:47 Labs: Abnormal Lab Results - Last 24 Hours (Table) 07/13/18 07/13/18 07/14/18 Range/Units 19:49 19:49 08:47 Eosinophils # 0.8 H (0-0.7) k/uL Glucose 113 H 135 H (74-99) mg/dL Assessment and Plan Plan: -Left ankle swelling probably low grade sprain, will use antiplatelet medication patient doesn't have any restriction of passive and active movements often x-ray to rule out any fracture clinically does not appear to have fracture -Schizoaffective disorder depression management as per primary service
--- NOTE | 2018-07-14 15:52 | XR ---
EXAMINATION TYPE: XR ankle complete LT, XR foot complete LT DATE OF EXAM: 07/14/2018 CLINICAL HISTORY: Swelling and bruising after fall injury. TECHNIQUE: Frontal, lateral and oblique images of the left ankle and foot are obtained. COMPARISON: None. FINDINGS: There is no acute fracture/dislocation evident in the left ankle. The ankle mortise appea rs within normal limits. Mild to moderate diffuse soft tissue swelling most prominent anteriorly is n oted. There is no acute fracture or dislocation evident in the left foot. Flexion in the toes is appreciate d. Joint spaces are maintained. Mild diffuse subcutaneous edema is present. The [place]'s toe is inci dentally seen. IMPRESSION: There is no acute fracture or dislocation in the left ankle or foot.
[2018-07-14 20:47] LABS: Hemoglobin A1C 5.2 % (4.0-6.0)
[2018-07-14] MEDS: FAMOTIDINE 20 MG TAB PO SCH (21:01)
[2018-07-14] MEDS: risperiDONE 1 MG TAB PO SCH (21:01)
[2018-07-15] MEDS: VENLAFAXINE HCL ER 75 MG CAP PO SCH (08:30)
[2018-07-15] MEDS: FAMOTIDINE 20 MG TAB PO SCH (08:31)
[2018-07-15] MEDS: ASPIRIN 81 MG PO SCH (08:31)
--- NOTE | 2018-07-15 13:06 | P.PN ---
Progress Note - Text Interval history: The patient is found in the hallway she follows me to an interview room. She states that her mood is good. She indicates that she slept well throughout the night even with us reducing the trazodone significantly. She has no questions or concerns regarding her medication. She has been attending groups. She asks when she can be discharged. We discussed goals that we would like to accomplish prior to discharge. Mental status exam: The patient is an overweight female appearing her stated age. She is dressed in hospital gowns hygiene grooming fair. Eye contacts appropriate speech is fluent and spontaneous nonpressured. Affect is bland. She reports no suicidal or homicidal ideation intent or plan she is reporting no auditory or visual hallucinations. She indicates that she feels safe here in the hospital. There is no observed evidence of psychosis. Thought process for the most part linear with brief questioning. She demonstrates no verbal or physical aggressiveness she demonstrates no involuntary repetitive movements. Plan: The patient will continue on her current psychotropic medication. We will continue to assess her for safety and monitor her clinical status. She is encouraged to continue participating in the milieu. Vital signs reviewed.
[2018-07-15] MEDS: risperiDONE 1 MG TAB PO SCH (21:23)
[2018-07-16 06:53] VITALS: BP 108/61; PULSE 73; RESP 18; TEMP 98.5
[2018-07-16] MEDS: ASPIRIN 81 MG PO SCH (08:57)
[2018-07-16] MEDS: VENLAFAXINE HCL ER 75 MG CAP PO SCH (08:57)
--- NOTE | 2018-07-16 12:34 | P.DS ---
Providers Date of admission: 07/13/18 20:17 Expected date of discharge: 07/16/18 Attending physician: Paul Zhou DO Consults: 07/13/18 21:47 Consult Physician Routine Consulting Provider: Alejandro Herrera Consult Reason/Comments: H&P and medical Do you want consulting provider notified?: Yes Primary care physician: Alton Nash - Discharge Diagnosis(es) (1) Schizoaffective disorder Current Visit: Yes Status: Acute Priority: High Hospital Course: Brief summary of admission note: This patient is a 43-year-old female who was admitted to the mental health unit through the emergency room for acute suicidal ideation. The patient states that she suddenly experienced auditory hallucinations that were making derogatory statements. They were calling her fat stupid ugly and worthless. She felt overwhelmed and presented to the hospital with suicidal thoughts. She does have a known diagnosis of schizoaffective disorder. For full details please refer to my psychiatric evaluation dated 07/14/2018. Summary of hospital course: The patient was admitted to the mental health unit voluntarily. He reviewed her presenting symptoms and treatment options. We continued the Risperdal 3 mg at bedtime Effexor XR 225 mg daily and reduced the trazodone to 100 mg at bedtime. She felt that the Risperdal dose did not need to be changed as it was recently titrated. Very soon after her admission she reported a resolution of auditory hallucinations. During the subsequent days she was able to demonstrate an ability to care for herself and she demonstrated no signs of any acute safety risk. She participated in group she was easily directable. She was seen by internal medicine for routine history and physical exam. She had some swelling of her left lower extremity and it was determined that she may have sprained her ankle. X-rays of the lower extremity were negative for any fracture. She reported a resolution of any acute symptoms and denies having any suicidal ideation intent or plan. Mental status exam: The patient is alert she is an overweight female appearing her stated age. She is dressed in hospital gowns. Hygiene grooming adequate. Eye contact is appropriate. Speech is fluent spontaneous nonpressured. She indicates her mood is much improved. She denies having any suicidal or homicidal ideation intent or plan. Affect is euthymic and bright. She denies having any auditory or visual hallucinations or any specific d elusions. There is no observed evidence of psychosis. Thought process is linear. She demonstrates no tangential thinking loose associations or flight of ideas. She does not appear hypomanic or manic. Insight and judgment grossly intact. She demonstrates no verbal or physical aggressiveness she demonstrates no involuntary repetitive movements. She spontaneously describes future oriented thinking. Impressions 1. Schizoaffective disorder bipolar type Plan: The patient will be discharged mental health unit today to return home. She will continue on Restoril 3 mg at bedtime Effexor XR 225 mg daily trazodone will be lowered to 100 mg at bedtime as needed. She will follow up with [facility] for outpatient mental health services. She reports no use of alcohol or illicit drugs. At this time there is no imminent safety risk she is appropriate for transition to outpatient care. She is instructed to return to the hospital for any acute safety concerns. Patient Condition at Discharge: Stable Plan - Discharge Summary New Discharge Prescriptions: New traZODone HCL [Desyrel] 100 mg PO HS PRN #30 tab PRN Reason: Insomnia Continue Aspirin EC [Ecotrin Low Dose] 81 mg PO DAILY Colace 50mg 50 mg PO DAILY PRN PRN Reason: Constipation Venlafaxine HCl [Effexor XR] 225 mg PO DAILY #30 tab.er.24 risperiDONE 3 mg PO HS #30 tablet Discontinued traZODone HCL [Desyrel] 400 mg PO HS Discharge Medication List Aspirin EC [Ecotrin Low Dose] 81 mg PO DAILY 07/13/18 [History] Colace 50mg 50 mg PO DAILY PRN 07/13/18 [History] Venlafaxine HCl [Effexor XR] 225 mg PO DAILY #30 tab.er.24 07/16/18 [Rx] risperiDONE 3 mg PO HS #30 tablet 07/16/18 [Rx] traZODone HCL [Desyrel] 100 mg PO HS PRN #30 tab 07/16/18 [Rx] Follow up Appointment(s)/Referral(s): Charity Dang MD [Primary Care Provider] - 1-2 days
== END 2018-07-16 15:08 | disposition home or self-care (01) | DRG 885 ==
LOC: EC 16:14 → 3MHU 20:17
PROVIDERS: ADMIT Psychiatry & Neurology Psychiatry; ATTEND Psychiatry & Neurology Psychiatry
DX: F25.0 Schizoaffective disorder, bipolar type (principal); R45.851 Suicidal ideations; E66.3 Overweight; M41.9 Scoliosis, unspecified; R01.1 Cardiac murmur, unspecified; S93.402A Sprain of unspecified ligament of left ankle, initial encounter; W19.XXXA Unspecified fall, initial encounter; Z79.899 Other long term (current) drug therapy; Z91.5 Personal history of self-harm; Z68.33 Body mass index [BMI] 33.0-33.9, adult; Z56.0 Unemployment, unspecified; Z91.410 Personal history of adult physical and sexual abuse; Z91.411 Personal history of adult psychological abuse; Z90.49 Acquired absence of other specified parts of digestive tract; Z98.51 Tubal ligation status; Z79.82 Long term (current) use of aspirin
CPT/HCPCS: 36415; 80048; 80053; 80061; 80306; 80320; 81025; 83036; 83520; 84443; 85025; 99285

== ENCOUNTER 2018-10-20 14:39 | Emergency (ER) | payer OTHER ==
[2018-10-20 15:03] VITALS: BP 140/82; RESP 18; TEMP 98.5
--- NOTE | 2018-10-20 15:29 | XR ---
EXAMINATION TYPE: XR wrist complete LT DATE OF EXAM: 10/20/2018 COMPARISON: NONE HISTORY: Pain TECHNIQUE: Four views submitted. FINDINGS: The osseous structures are intact. The joint spaces are preserved and there is no acute fracture or dislocation. IMPRESSION: 1. No definite acute fracture or dislocation if symptoms persist, follow-up study in 7 to 10 days wo uld be suggested
--- NOTE | 2018-10-20 15:30 | XR ---
EXAMINATION TYPE: XR hand complete LT DATE OF EXAM: 10/20/2018 COMPARISON: NONE HISTORY: Pain TECHNIQUE: Three views are submitted. FINDINGS: The osseous structures are intact. The joint spaces are preserved and there is no acute fracture or dislocation. IMPRESSION: 1. No definite acute fracture or dislocation if symptoms persist, follow-up study in 7 to 10 days wo uld be suggested
[2018-10-20] MEDS ORDERED: DIPH,PERTUS(ACELL)TETVAC-LF 0.5 ML VIAL IM ONE (15:53)
--- NOTE | 2018-10-20 16:11 | ED ---
General Adult HPI - General Chief complaint: Extremity Injury, Upper Stated complaint: Hand Injury Time Seen by Provider: 10/20/18 15:11 Source: patient, RN notes reviewed, old records reviewed Mode of arrival: ambulatory Limitations: no limitations - History of Present Illness Initial comments: 43-year-old female patient with past history of tubal ligation, appendectomy presents ED with left hand and wrist injury. Patient reports that she was walking her dog when one pulled her and she felt left outstretched arm. Patient has minor abrasion to fingertips. Patient also suffered a an abrasion to her left knee. Patient ambulatory without difficulty. Denies any pain in the. Patient complaint is pain at the medial aspect of the fifth metacarpal. Denies any other complaints. Denies any trauma to head or neck or loss of consciousness. Systemic: Pt denies fatigue, fever/chills, rash. Pt denies weakness, night sweats, weight loss. Neuro: Pt denies headache, visual disturbances, syncope or pre-syncope. HEENT: Pt denies ocular discharge or irritation, otalgia, rhinorrhea, pharyngitis or notable lymphadenopathy. Cardiopulmonary: Pt denies chest pain, SOB, heart palpitations, dyspnea on exertion. Abdominal/GI: Pt denies abdominal pain, n/v/d. : Pt denies dysuria, burning w/ urination, frequency/urgency. Denies new onset urinary or bowel incontinence. MSK: Pt denies myalgia, loss of strength or function in extremities. Neuro: Pt denies new onset weakness, paresthesias. - Related Data Home Medications Medication Instructions Recorded Confirmed Aspirin EC [Ecotrin Low Dose] 81 mg PO DAILY 07/13/18 07/13/18 Colace 50mg 50 mg PO DAILY PRN 07/13/18 07/13/18 Previous Rx's Medication Instructions Recorded Venlafaxine HCl [Effexor XR] 225 mg PO DAILY #30 tab.er.24 07/16/18 risperiDONE 3 mg PO HS #30 tablet 07/16/18 traZODone HCL [Desyrel] 100 mg PO HS PRN #30 tab 07/16/18 Allergies Allergy/AdvReac Type Severity Reaction Status Date / Time No Known Allergies Allergy Verified 10/20/18 15:03 Review of Systems ROS Statement: Those systems with pertinent positive or pertinent negative responses have been documented in the HPI. ROS Other: All systems not noted in ROS Statement are negative. Past Medical History Past Medical History: No Reported History Additional Past Medical History / Comment(s): scoliosis, heart murmur History of Any Multi-Drug Resistant Organisms: None Reported Past Surgical History: Appendectomy, Hernia Repair, Tubal Ligation Past Psychological History: Anxiety, Depression, Schizoaffective Disorder Smoking Status: Never smoker Past Alcohol Use History: None Reported Past Drug Use History: None Reported General Exam - General Exam Comments Initial Comments: Constitutional: NAD, AOX3, Pt has pleasant affect. HEENT: NC/AT, trachea midline, neck supple, no lymphadenopathy. Posterior pharynx non erythematous, without exudates. External ears appear normal, without discharge. Mucous membranes moist. Eyes PERRLA, EOM intact. There is no scleral icterus. No pallor noted. Cardiopulmonary: RRR, no murmurs, rubs or gallops, no JVD noted. Lungs CTAB in anterior and posterior walton. No peripheral edema. Abdominal exam: Abdomen soft and non-distended. Abdomen non-tender to palpation in all 4 quadrants. Bowel sounds active in LLQ. No hepatosplenomegaly. No ecchymosis Neuro: CN II-XII grossly intact. No nuchal rigidity. No raccon eyes, no bergman sign, no hemotympanum. No cervical spinal tenderness. MSK: Mild tenderness to palpation in bilateral fifth metacarpal on left hand. No tender to palpation in any other area of hand or wrist. No snuffbox tenderness. Full active range of motion all digits. Capillary refill less than 2 seconds. Sensation intact. No wrist or upper extremity tenderness. Mild abrasion noted on left knee. Nontender to palpation. Ambulatory without difficulty. Mild abrasion noted on fourth and fifth fingertip. Abrasions were cleaned. No posterior calf tenderness bilaterally, homans sign negative bilaterally. Posterior tibialis and radial pulse +2 bilaterally. Sensation intact in upper and lower extremities. Full active ROM in upper and lower extremities, 5/5 stregnth. Limitations: no limitations Course Vital Signs 10/20/18 15:01 Temperature 98.5 F Pulse Rate 98 Respiratory 18 Rate Blood Pressure 140/82 O2 Sat by Pulse 98 Oximetry Medical Decision Making - Medical Decision Making 43-year-old female patient with past history of tubal ligation, appendectomy presents ED with left hand and wrist injury. Patient reports that she was walking her dog when one pulled her and she felt left outstretched arm. Patient has minor abrasion to fingertips. Patient also suffered a an abrasion to her left knee. Patient ambulatory without difficulty. Denies any pain in the. Patient complaint is pain at the medial aspect of the fifth metacarpal. Denies any other complaints. Denies any trauma to head or neck or loss of consciousness. Pt VSS, afebrile. Physical exam displayed: Mild tenderness to palpation in bilateral fifth metacarpal on left hand. No tender to palpation in any other area of hand or wrist. No snuffbox tenderness. Full active range of motion all digits. Capillary refill less than 2 seconds. Sensation intact. No wrist or upper extremity tenderness. Mild abrasion noted on left knee. Nontender to palpation. Ambulatory without difficulty. Mild abrasion noted on fourth and fifth fingertip. Abrasions were cleaned. Plain film of hand and wrist did not display acute process. Patient will be discharged, will follow up with primary care provider in 1-2 days. Provided orthopedic consult if symptoms or pain continues. Patient return to ER if condition worsens in any way. Pt tetanus updated. Case discussed with Dr. Gama. Disposition Clinical Impression: Hand sprain, Fall Disposition: HOME SELF-CARE Condition: Stable Instructions (If sedation given, give patient instructions): Hand Sprain (ED), Fall Prevention (ED) Additional Instructions: Patient to adhere to previously discussed treatment plan and will take medication(s) as directed. Patient to follow up with PCP in 1-2 days. Patient to return to ED if symptoms do not improve. Follow-up with primary care provider in 1-2 days. Return to ER if condition worsens in any way. Follow up with orthopedic consult if symptoms persist. Is patient prescribed a controlled substance at d/c from ED?: No Referrals: Charity Dang MD [Primary Care Provider] - 1-2 days Roman Chisholm MD [STAFF PHYSICIAN] - 1-2 days
[2018-10-20 16:15] VITALS: PULSE 92
== END 2018-10-20 16:15 | disposition home or self-care (01) ==
LOC: EC 14:39
DX: S63.92XA Sprain of unspecified part of left wrist and hand, initial encounter (principal); S60.415A Abrasion of left ring finger, initial encounter; S60.417A Abrasion of left little finger, initial encounter; S80.212A Abrasion, left knee, initial encounter; Z79.82 Long term (current) use of aspirin; Z23 Encounter for immunization; W01.0XXA Fall on same level from slipping, tripping and stumbling without subsequent striking against object, initial encounter; Y93.K1 Activity, walking an animal; Y92.89 Other specified places as the place of occurrence of the external cause
CPT/HCPCS: 90471; 90715; 99284

== ENCOUNTER → 2019-10-24 | Outpatient (CLI) | payer OTHER ==
[2019-10-24 11:01] LABS: Basophils # (A) 0.1 k/uL (0-0.2); Basophils % (A) 2 %; Eosinophils # (A) 0.3 k/uL (0-0.7); Eosinophils % (A) 5 %; HCT 38.8 % (34.0-46.0); HGB 12.6 gm/dL (11.4-16.0); Lymphocytes # (A) 1.7 k/uL (1.0-4.8); Lymphocytes % (A) 27 %; MCH 27.5 pg (25.0-35.0); MCHC 32.5 g/dL (31.0-37.0); MCV 84.7 fL (80.0-100.0); Mean Platelet Volume 7.4; Monocytes # (A) 0.2 k/uL (0-1.0); Monocytes % (A) 4 %; Neutrophils # (A) 3.8 k/uL (1.3-7.7); Neutrophils % (A) 60 %; Platelet Count 324 k/uL (150-450); RBC 4.58 m/uL (3.80-5.40); RDW 14.1 % (11.5-15.5); WBC 6.2 k/uL (3.8-10.6)
[2019-10-24 16:49] LABS: Hemoglobin A1C 5.4 % (4.0-6.0)
[2019-10-24 17:34] LABS: African American GFR (CKD) 120.4 (60.0-200.0); Albumin 4.1 g/dL (3.80-4.90); Albumin/Globulin Ratio 1.58 (1.60-3.17); Anion Gap 6.6 mmol/L (4.00-12.00); BUN/Creat Ratio 21.43 Ratio (12.00-20.00); Calcium 8.9 mg/dL (8.7-10.3); Carbon Dioxide 25.4 mmol/L (21.6-31.8); Chol/HDL Ratio 2.98; Globulin 2.6 g/dL (1.6-3.3); LDL Cholesterol,Calculated 84.6 mg/dL (0.0-131.0); Non-African American GFR(CKD) 103.9 (60.0-200.0); Potassium 4.3 mmol/L (3.5-5.5); Total Bilirubin 0.4 mg/dL (0.2-1.2); Total Protein 6.7 g/dL (6.2-8.2); VLDL Calculation 20.4 mg/dL (5.00-40.00)
[2019-10-24 17:54] LABS: T4, Free (Free Thyroxine) 0.8 ng/dL (0.80-1.80)
== END | disposition home or self-care (01) ==
LOC: LABWHC1 09:18
PROVIDERS: ATTEND Nurse Practitioner Psychiatric/Mental Health
DX: F25.0 Schizoaffective disorder, bipolar type (principal); Z51.81 Encounter for therapeutic drug level monitoring; Z79.899 Other long term (current) drug therapy
CPT/HCPCS: 36415; 80053; 80061; 83036; 84439; 84443; 85025

== ENCOUNTER → 2020-04-02 | Outpatient (CLI) | payer OTHER ==
[2020-04-02 12:48] LABS: Basophils # (A) 0.2 k/uL (0-0.2); Basophils % (A) 2 %; Eosinophils # (A) 0.9 k/uL (0-0.7); Eosinophils % (A) 11 %; HCT 37.6 % (34.0-46.0); HGB 12.3 gm/dL (11.4-16.0); Hypochromasia Slight; Lymphocytes % (A) 25 %; MCH 26.8 pg (25.0-35.0); MCHC 32.7 g/dL (31.0-37.0); Mean Platelet Volume 7.2; Monocytes # (A) 0.3 k/uL (0-1.0); Monocytes % (A) 4 %; Neutrophils # (A) 4.4 k/uL (1.3-7.7); Neutrophils % (A) 55 %; Platelet Count 378 k/uL (150-450); RBC 4.59 m/uL (3.80-5.40); WBC 7.9 k/uL (3.8-10.6)
[2020-04-02 18:30] LABS: African American GFR (CKD) 119.6 (60.0-200.0); Albumin/Globulin Ratio 1.54 (1.60-3.17); Anion Gap 5.3 mmol/L (4.00-12.00); BUN/Creat Ratio 25.71 Ratio (12.00-20.00); Calcium 9.4 mg/dL (8.7-10.3); Carbon Dioxide 28.7 mmol/L (21.6-31.8); Chol/HDL Ratio 3.35; Globulin 2.6 g/dL (1.6-3.3); LDL Cholesterol,Calculated 107.8 mg/dL (0.0-131.0); Non-African American GFR(CKD) 103.2 (60.0-200.0); Potassium 4.6 mmol/L (3.5-5.5); Total Bilirubin 0.4 mg/dL (0.2-1.2); Total Protein 6.6 g/dL (6.2-8.2); VLDL Calculation 26.2 mg/dL (5.00-40.00)
[2020-04-02 18:54] LABS: T4, Free (Free Thyroxine) 0.7 ng/dL (0.80-1.80)
== END | disposition home or self-care (01) ==
LOC: LABWHC1 09:58
PROVIDERS: ATTEND Nurse Practitioner Acute Care
DX: E78.5 Hyperlipidemia, unspecified (principal); E55.9 Vitamin D deficiency, unspecified; R90.82 White matter disease, unspecified; I67.82 Cerebral ischemia
CPT/HCPCS: 36415; 80053; 80061; 82306; 82607; 84207; 84439; 84443; 84481; 85025

== ENCOUNTER 2021-01-07 15:45 | Emergency (ER) | payer BC, OTHER ==
[2021-01-07 17:32] VITALS: RESP 18
[2021-01-07] MEDS ORDERED: DIPH,PERTUS(ACELL)TETVAC-LF 0.5 ML VIAL IM ONE (19:31)
--- NOTE | 2021-01-07 19:32 | ED ---
General Adult HPI - General Chief complaint: Burn/Smoke Inhalation Stated complaint: Burn on Lt Hand Time Seen by Provider: 01/07/21 19:01 Source: patient, RN notes reviewed Mode of arrival: ambulatory Limitations: no limitations - History of Present Illness Initial comments: 45-year-old female presents emergency Department chief complaint of burn to her left hand and right thumb. Patient states she is [id number] she is using hot glue at work in which it draped across her hand. There is some blistering noted she is unsure when her last tetanus was. Patient's full range of motion she states it's very minimal pain at this time. - Related Data Home Medications Medication Instructions Recorded Confirmed Aspirin EC [Ecotrin Low Dose] 81 mg PO DAILY 07/13/18 07/13/18 Colace 50mg 50 mg PO DAILY PRN 07/13/18 07/13/18 Previous Rx's Medication Instructions Recorded Venlafaxine HCl [Effexor XR] 225 mg PO DAILY #30 tab.er.24 07/16/18 risperiDONE 3 mg PO HS #30 tablet 07/16/18 traZODone HCL [Desyrel] 100 mg PO HS PRN #30 tab 07/16/18 Allergies Allergy/AdvReac Type Severity Reaction Status Date / Time No Known Allergies Allergy Verified 01/07/21 17:32 Review of Systems ROS Statement: Those systems with pertinent positive or pertinent negative responses have been documented in the HPI. ROS Other: All systems not noted in ROS Statement are negative. Past Medical History Past Medical History: No Reported History Additional Past Medical History / Comment(s): scoliosis, heart murmur History of Any Multi-Drug Resistant Organisms: None Reported Past Surgical History: Appendectomy, Hernia Repair, Tubal Ligation Past Psychological History: Anxiety, Depression, Schizoaffective Disorder Past Alcohol Use History: None Reported Past Drug Use History: None Reported General Exam Limitations: no limitations General appearance: alert, in no apparent distress Head exam: Present: atraumatic, normocephalic, normal inspection Neck exam: Present: normal inspection. Absent: tenderness, meningismus, lymphadenopathy Respiratory exam: Present: normal lung sounds bilaterally. Absent: respiratory distress, wheezes, rales, rhonchi, stridor Cardiovascular Exam: Present: regular rate, normal rhythm, normal heart sounds. Absent: systolic murmur, diastolic murmur, rubs, gallop, clicks Extremities exam: Present: other (Left hand palmar aspect, medial aspect of her palm.Across digits to 3 there is some second degree whitehead noted, there is small blistering noted on the right thumb) Course Vital Signs 01/07/21 17:28 Temperature 98.6 F Pulse Rate 89 Respiratory 18 Rate Blood Pressure 134/92 O2 Sat by Pulse 98 Oximetry Medical Decision Making - Medical Decision Making Patient is secondary whitehead there is no circumferential whitehead patient states tetanus is updated patient was given burn cream we discharged him stable condition return parameters discussed. Disposition Clinical Impression: Burn of hand, second degree Disposition: HOME SELF-CARE Condition: Stable Instructions (If sedation given, give patient instructions): Second Degree Burn (ED) Additional Instructions: Please return to the Emergency Department if symptoms worsen or any other concerns. Is patient prescribed a controlled substance at d/c from ED?: No Referrals: Jhon Zacarias DO [Primary Care Provider] - 1-2 days Time of Disposition: 19:32
[2021-01-07 19:57] VITALS: BP 148/78; PULSE 82; TEMP 97.7
== END 2021-01-07 19:57 | disposition home or self-care (01) ==
LOC: EC 15:45
DX: T23.202A Burn of second degree of left hand, unspecified site, initial encounter (principal); T23.211A Burn of second degree of right thumb (nail), initial encounter; T31.0 Burns involving less than 10% of body surface; Z23 Encounter for immunization; F41.9 Anxiety disorder, unspecified; F32.9 Major depressive disorder, single episode, unspecified; F20.9 Schizophrenia, unspecified; Z79.82 Long term (current) use of aspirin; Z90.49 Acquired absence of other specified parts of digestive tract; Z98.51 Tubal ligation status; X19.XXXA Contact with other heat and hot substances, initial encounter
CPT/HCPCS: 90471; 90715; 99283

== ENCOUNTER → 2021-01-30 | Outpatient (CLI) | payer BC, OTHER ==
--- NOTE | 2021-01-31 13:45 | MM ---
Reason for exam: screening (asymptomatic). Baseline mammogram. Physical Findings: Nurse did not find any significant physical abnormalities on exam. MG 3D Screening Mammo W/Cad Bilateral CC and MLO view(s) were taken. XCCL view(s) were taken of the right breast. There are scattered fibroglandular densities. There is no discrete abnormality. No significant changes when compared with prior studies. ASSESSMENT: Negative, BI-RAD 1 RECOMMENDATION: Routine screening mammogram of both breasts in 1 year.
== END | disposition home or self-care (01) ==
LOC: RADMAMWWP 12:31
PROVIDERS: ATTEND Family Medicine
DX: Z12.31 Encounter for screening mammogram for malignant neoplasm of breast (principal)
CPT/HCPCS: 77063; 77067

== ENCOUNTER 2021-05-29 06:30 | Emergency (ER) | payer BC, OTHER ==
--- NOTE | 2021-05-29 07:25 | ED ---
General Adult HPI - General Chief complaint: Upper Respiratory Infection Stated complaint: Cough, sore throat Time Seen by Provider: 05/29/21 06:35 Source: patient, RN notes reviewed Mode of arrival: ambulatory Limitations: no limitations - History of Present Illness Initial comments: 46-year-old female presents emergency Department chief complaint of cough congestion. Symptoms started last 2 days. Patient states she is concerned about covid. She denies any bodyaches no fevers or chills. Patient states she has a sore throat mild headache nonproductive cough. Patient's had no sick contacts she is concerned that she lives with her immune compromise mother. - Related Data Home Medications Medication Instructions Recorded Confirmed Aspirin EC [Ecotrin Low Dose] 81 mg PO DAILY 07/13/18 07/13/18 Colace 50mg 50 mg PO DAILY PRN 07/13/18 07/13/18 Previous Rx's Medication Instructions Recorded Venlafaxine HCl [Effexor XR] 225 mg PO DAILY #30 tab.er.24 07/16/18 risperiDONE 3 mg PO HS #30 tablet 07/16/18 traZODone HCL [Desyrel] 100 mg PO HS PRN #30 tab 07/16/18 Allergies Allergy/AdvReac Type Severity Reaction Status Date / Time No Known Allergies Allergy Verified 05/29/21 06:35 Review of Systems ROS Statement: Those systems with pertinent positive or pertinent negative responses have been documented in the HPI. ROS Other: All systems not noted in ROS Statement are negative. Past Medical History Past Medical History: No Reported History Additional Past Medical History / Comment(s): scoliosis, heart murmur History of Any Multi-Drug Resistant Organisms: None Reported Past Surgical History: Appendectomy, Hernia Repair, Tubal Ligation Past Psychological History: Anxiety, Depression, Schizoaffective Disorder Smoking Status: Never smoker Past Alcohol Use History: None Reported Past Drug Use History: None Reported General Exam Limitations: no limitations General appearance: alert, in no apparent distress Head exam: Present: atraumatic, normocephalic, normal inspection Eye exam: Present: normal appearance, PERRL, EOMI. Absent: scleral icterus, conjunctival injection, periorbital swelling ENT exam: Present: normal exam, normal oropharynx, mucous membranes moist Neck exam: Present: normal inspection, full ROM. Absent: tenderness, meningismus, lymphadenopathy Respiratory exam: Present: normal lung sounds bilaterally. Absent: respiratory distress, wheezes, rales, rhonchi, stridor Cardiovascular Exam: Present: regular rate, normal rhythm, normal heart sounds. Absent: systolic murmur, diastolic murmur, rubs, gallop, clicks GI/Abdominal exam: Present: soft, normal bowel sounds. Absent: distended, tenderness, guarding, rebound, rigid Neurological exam: Present: alert, oriented X3 Skin exam: Present: warm, dry, intact, normal color. Absent: rash Course Vital Signs 05/29/21 05/29/21 06:33 07:05 Temperature 98.1 F Pulse Rate 77 Respiratory 18 18 Rate Blood Pressure 154/79 O2 Sat by Pulse 100 Oximetry Medical Decision Making - Medical Decision Making Patient is positive for covid 19. Patient will receive monoclonal antibodies and discharged in stable condition. - Lab Data Lab Results 05/29/21 Range/Units 06:52 Coronavirus (PCR) Detected A (Not Detectd) Disposition Clinical Impression: COVID-19 Disposition: HOME SELF-CARE Condition: Stable Instructions (If sedation given, give patient instructions): Coronavirus Disease 2019 (COVID-19) Additional Instructions: Please return to the Emergency Department if symptoms worsen or any other concerns. Is patient prescribed a controlled substance at d/c from ED?: No Referrals: Jhon Zacarias DO [Primary Care Provider] - 1-2 days Time of Disposition: 07:47
[2021-05-29] MEDS ORDERED: SODIUM CHLORIDE 0.9% 50 ML IVPB ONE (08:00)
[2021-05-29] MEDS ORDERED: BAMLANIVIMAB (EUA) 700 MG, ETESEVIMAB (EUA) 1,400 MG in SODIUM CHLORIDE 0.9% 100 ML IVPB ONE (08:30)
[2021-05-29 10:30] VITALS: BP 119/83; PULSE 61; RESP 16; TEMP 97.9
== END 2021-05-29 10:30 | disposition home or self-care (01) ==
LOC: EC 06:30
DX: U07.1 COVID-19 (principal); Z79.82 Long term (current) use of aspirin
CPT/HCPCS: 87635; 99283

== ENCOUNTER → 2022-02-06 | Outpatient (CLI) | payer OTHER ==
--- NOTE | 2022-02-07 07:40 | MM ---
Reason for Exam: Screening (asymptomatic). Last screening mammogram was performed 12 month(s) ago. Patient History: Menarche at age 16. First Full-Term at age 18. Patient has history of breast feeding. Last menstrual period: 01/12/2022 Risk Values: Amanda 5 year model risk: 0.7%. NCI Lifetime model risk: 7.6%. Prior Study Comparison: 01/30/2021 Bilateral Screening Mammogram, [facility]. Tissue Density: The breast tissue is heterogeneously dense. This may lower the sensitivity of mammography. Findings: Analyzed By CAD. There is no suspicious group of microcalcifications. Asymmetric density lower inner left breast 8 cm from the nipple. Overall Assessment: Incomplete: need additional imaging evaluation, BI-RAD 0 Management: Diagnostic Mammogram of the left breast. A clinical breast exam by your physician is recommended on an annual basis and results should be correlated with mammographic findings. Electronically signed and approved by: Sukhdeep Kasper M.D. Radiologis
== END | disposition home or self-care (01) ==
LOC: RADMAMWWP 16:25
PROVIDERS: ATTEND Family Medicine
DX: Z12.31 Encounter for screening mammogram for malignant neoplasm of breast (principal)
CPT/HCPCS: 77067

== ENCOUNTER → 2022-02-11 | Outpatient (CLI) | payer OTHER ==
--- NOTE | 2022-02-11 09:15 | MM ---
Reason for Exam: Additional evaluation requested from abnormal screening. Last screening mammogram was performed less than 1 month ago. Patient History: Menarche at age 16. First Full-Term at age 18. Patient has history of breast feeding. Last menstrual period: 02/09/2022 Risk Values: Amanda 5 year model risk: 0.8%. NCI Lifetime model risk: 7.5%. Prior Study Comparison: 01/30/2021 Bilateral Screening Mammogram, [facility]. 02/06/2022 Bilateral MG screening mammo w CAD, [facility]. Tissue Density: Left: The breast tissue is heterogeneously dense. This may lower the sensitivity of mammography. Findings: Analyzed By CAD. Focal asymmetric tissue centrally left breast unchanged from 2011 mammograms and additional views. No distinct new lesion identified. Overall Assessment: Negative, BI-RAD 1 Management: Screening Mammogram of both breasts in 1 year. Return to routine follow-up. Patient told the findings and results at time of dictation. Electronically signed and approved by: Chago Black M.D.
== END | disposition home or self-care (01) ==
LOC: RADMAMWWP 08:50
PROVIDERS: ATTEND Family Medicine
DX: R92.8 Other abnormal and inconclusive findings on diagnostic imaging of breast (principal)
CPT/HCPCS: 77065

== ENCOUNTER 2022-04-15 08:09 | Day surgery (SDC) | payer OTHER ==
[~2022-04-15 08:09] MED LIST: LACTATED RINGERS 1,000 ML IV SCH; LIDOCAINE 1% (10MG/ML) FOR IV START INTRADERMA PRN
[2022-04-15 09:33] VITALS: RESP 18; TEMP 98
[2022-04-15] MEDS ORDERED: LACTATED RINGERS 1,000 ML IV ONE (09:34)
[2022-04-15] MEDS ORDERED: PROPOFOL 10 MG/ML 20 ML VIAL IV ONE (09:57)
[2022-04-15] MEDS ORDERED: fentaNYL (PF) 50 MCG/ML 2 ML AMP ONE (09:57)
[2022-04-15] MEDS ORDERED: MIDAZOLAM 2 MG/2 ML VIAL ONE (09:57)
--- NOTE | 2022-04-15 10:26 | P.PCN ---
Date of Procedure: 04/15/22 Procedure(s) Performed: BRIEF HISTORY: Patient is a 47-year-old pleasant white female scheduled for an elective colonoscopy as a part of screening for colon cancer. PROCEDURE PERFORMED: Colonoscopy with biopsy and snare polypectomy. PREOPERATIVE DIAGNOSIS: Screening for colon cancer. IV sedation per Anesthesia. PROCEDURE: After informed consent was obtained, the patient, was brought into the endoscopy unit. IV sedation was administered by Anesthesia under continuous monitoring. Digital rectal examination was normal. Initially the Olympus CF-160 flexible video colonoscope was then inserted in the rectum, gradually advanced into the cecum without any difficulty. Careful examination was performed as the scope was gradually being withdrawn. Ileocecal valve and the appendiceal orifice were visualized and appeared normal. Prep was excellent. Mucosa of the cecum, a 3 mm polyp that was removed by cold biopsy. In the ascending colon there was a 1 cm and 2.5 cm broad-based polyps removed by snare polypectomy. In the hepatic flexure there was a 1 cm polyp removed by snare polypectomy. Rest of the ascending colon, transverse colon, descending colon, sigmoid colon, and rectum appeared normal. Retroflexion was performed in the rectum and no lesions were seen. The patient tolerated the procedure well. IMPRESSION: 3 mm cecal polyp status post cold biopsy 1 cm and 2.5 cm broad-based ascending colon polyp status post polypectomy 1 cm hepatic flexure polyp status post RECOMMENDATIONS: Findings of this examination were discussed with the patient is a family. She was advised to follow with the biopsy results. If the biopsy reveals adenoma she can have a repeat colonoscopy in 3 years..
[2022-04-15 11:00] VITALS: BP 143/83; PULSE 104
== END 2022-04-15 11:35 | disposition home or self-care (01) ==
LOC: ORWHC2ENDO 08:09
PROVIDERS: ATTEND Internal Medicine Gastroenterology
DX: Z12.11 Encounter for screening for malignant neoplasm of colon (principal); D12.0 Benign neoplasm of cecum; D12.2 Benign neoplasm of ascending colon; D12.3 Benign neoplasm of transverse colon; F41.8 Other specified anxiety disorders; M41.9 Scoliosis, unspecified; F25.9 Schizoaffective disorder, unspecified; Z79.82 Long term (current) use of aspirin; Z79.899 Other long term (current) drug therapy; Z98.51 Tubal ligation status; Z90.49 Acquired absence of other specified parts of digestive tract; Z98.890 Other specified postprocedural states
CPT/HCPCS: 81025; 88305; 45380; 45385; J2250; J3010; J2704

== ENCOUNTER → 2022-05-27 | Outpatient (CLI) | payer OTHER ==
--- NOTE | 2022-05-27 10:31 | US ---
EXAMINATION TYPE: US pelvic complete DATE OF EXAM: 05/27/2022 COMPARISON: NONE CLINICAL HISTORY: 47-year-old female N92.0 EXCESSIVE AND FREQUENT MENSTRUATION WITH REG. Heavy cycle last month, , tubal TECHNIQUE: TA. Transabdominal sonographic images of the pelvis were acquired. Patient refused TV approach after being educated on the benefit Date of LMP: 05/05/2022 FINDINGS: EXAM MEASUREMENTS: Uterus: 9.5 x 6.0 x 6.1 cm Endometrial Stripe: 3.0-3.5cm Right Ovary: not seen Left Ovary: not seen 1. Uterus: Retroverted an otherwise wnl 2. Endometrium: grossly thickened 3. Right Ovary: not seen due to bowel gas and habitus 4. Left Ovary: not seen due to bowel gas and habitus 5. Bilateral Adnexa: wnl 6. Posterior cul-de-sac: wnl IMPRESSION: 1. Grossly thickened endometrium up to 3.5 cm, more than twice than what may be considered normal. En dometrial hyperplasia or underlying endometrial carcinoma are not excluded at this time. Further OB/G YN evaluation recommended. Note that detailed assessment with transvaginal scanning could not be perf ormed; the patient declined. 2. Unable to visualize either ovary.
== END | disposition home or self-care (01) ==
LOC: RADUSWWP 08:04
PROVIDERS: ATTEND Family Medicine
DX: N92.0 Excessive and frequent menstruation with regular cycle (principal); R93.89 Abnormal findings on diagnostic imaging of other specified body structures
CPT/HCPCS: 76856

== ENCOUNTER → 2023-06-02 | Outpatient (CLI) | payer OTHER ==
--- NOTE | 2023-06-03 11:04 | MM ---
Reason for Exam: Screening (asymptomatic). Last mammogram was performed 1 year(s) and 4 month(s) ago. Patient History: Menarche at age 16. First Full-Term at age 18. Postmenopausal. Patient has history of breast feeding. Risk Values: Amanda 5 year model risk: 0.8%. NCI Lifetime model risk: 7.4%. Prior Study Comparison: 01/30/2021 Bilateral Screening Mammogram, [facility]. 02/06/2022 Bilateral MG screening mammo w CAD, [facility]. 02/11/2022 Left MG work up mamm w CAD LT, [facility]. Tissue Density: There are scattered fibroglandular densities. Findings: Analyzed By CAD. There is no suspicious group of microcalcifications or new suspicious mass. Overall Assessment: Negative, BI-RAD 1 Management: Screening Mammogram of both breasts in [address] [facility] will attempt to contact patient to return for supplemental views and ultrasound if indicated. Patient should continue monthly self-breast exams. A clinical breast exam by your physician is recommended on an annual basis. This exam should not preclude additional follow-up of suspicious palpable abnormalities. Note on Amanda scores and lifetime risk: 1. A Amanda score greater than 3% is considered moderate risk. If this is the case, consider specialist referral to assess eligibility for a risk reducing agent. 2. If overall lifetime risk for the development of breast cancer is 20% or higher, the patient may qualify for future screening with alternating mammogram and breast MRI. Electronically signed and approved by: Roc Khan DO
== END | disposition home or self-care (01) ==
LOC: RADMAMWWP 09:07
PROVIDERS: ATTEND Family Medicine
DX: Z12.31 Encounter for screening mammogram for malignant neoplasm of breast (principal); Z78.0 Asymptomatic menopausal state
CPT/HCPCS: 77063; 77067

== ENCOUNTER 2023-09-21 12:14 | Emergency (ER) | payer OTHER ==
[2023-09-21] MEDS: KETOROLAC 15 MG/ML 1 ML VIAL IVP STA (13:31)
[2023-09-21] MEDS: DEXAMETHASONE SOD PHOSPHATE 10 MG/ML 1 ML VIAL IVP STA (13:33)
[2023-09-21] MEDS: LIDOCAINE 4% PATCH TOPICAL ONE (13:33)
[2023-09-21] MEDS: ORPHENADRINE 30 MG/ML 2 ML VIAL IVP STA (13:34)
--- NOTE | 2023-09-21 13:42 | ED ---
Back Pain HPI - General Chief Complaint: Back Pain/Injury Stated Complaint: Back Pain Time Seen by Provider: 09/21/23 12:38 Source: patient, family, RN notes reviewed Mode of arrival: ambulatory Limitations: no limitations - History of Present Illness Initial Comments: This is a 48-year-old female who presents to the emergency department for low back pain. States that it started several days ago. Denies any injuries. 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 She has had similar back pain before, but does not believe that it was this severe. She is taking ibuprofen and Tylenol without relief in symptoms. Denies any loss of bowel/bladder control or saddle anesthesia. Pain does not radiate down her legs. MD Complaint: back pain - Related Data Home Medications Medication Instructions Recorded Confirmed Aspirin EC [Ecotrin Low Dose] 81 mg PO DAILY 07/13/18 04/14/22 ARIPiprazole [Abilify] 10 mg PO HS 04/14/22 04/14/22 Cholecalciferol [Vitamin D3 (25 1 tab PO DAILY 04/14/22 04/14/22 Mcg = 1000 Iu)] Venlafaxine HCl [Effexor XR] 225 mg PO QAM 04/14/22 04/14/22 Previous Rx's Medication Instructions Recorded Ketorolac [Toradol] 10 mg PO Q6HR PRN #15 tab 09/21/23 Lidocaine 5% Patch [Lidoderm 5% 1 patch TOPICAL DAILY PRN #30 patch 09/21/23 Patch] methocarbamoL [Robaxin-750] 1,500 mg PO TID PRN #30 tab 09/21/23 Allergies Allergy/AdvReac Type Severity Reaction Status Date / Time No Known Allergies Allergy Verified 04/14/22 10:06 Review of Systems ROS Statement: Those systems with pertinent positive or pertinent negative responses have been documented in the HPI. ROS Other: All systems not noted in ROS Statement are negative. Past Medical History Past Medical History: Asthma Additional Past Medical History / Comment(s): WHEEZING. Scoliosis. Heart murmur History of Any Multi-Drug Resistant Organisms: None Reported Past Surgical History: Appendectomy, Hernia Repair, Tubal Ligation Past Anesthesia/Blood Transfusion Reactions: No Reported Reaction Past Psychological History: Anxiety, Depression, Schizoaffective Disorder Smoking Status: Never smoker Past Alcohol Use History: None Reported Past Drug Use History: None Reported General Exam Limitations: no limitations General appearance: alert, in no apparent distress Head exam: Present: atraumatic, normocephalic, normal inspection Respiratory exam: Present: normal lung sounds bilaterally. Absent: respiratory distress, wheezes, rales, rhonchi, stridor Cardiovascular Exam: Present: regular rate, normal rhythm, normal heart sounds. Absent: systolic murmur, diastolic murmur, rubs, gallop, clicks GI/Abdominal exam: Present: soft, normal bowel sounds. Absent: distended, tenderness, guarding, rebound, rigid Back exam: Present: tenderness (Lower lumbar spine) Neurological exam: Present: alert Psychiatric exam: Present: normal affect, normal mood Skin exam: Present: warm, dry, intact, normal color. Absent: rash Course Vital Signs 09/21/23 09/21/23 12:34 15:16 Temperature 98.8 F 98.2 F Pulse Rate 83 81 Respiratory 16 18 Rate Blood Pressure 185/103 145/88 O2 Sat by Pulse 98 96 Oximetry Medical Decision Making - Medical Decision Making This is a 48 year old female who presents to the emergency department for lower back pain. Was pt. sent in by a medical professional or institution? @ -No Did you speak to anyone other than the patient for history? @ -No Did you review nursing and triage notes? @ -Yes, and I agree, it is accurate with regards to the patient's symptoms. Were old charts reviewed? @ -No Differential Diagnosis? @ -Differential Back Pain: Strain, zoster, cauda equina syndrome, epidural abscess, vertebral osteomyelitis, discitis, fracture, subluxation, disc herniation, DJD, spinal stenosis, dissection, AAA, pancreatitis, peptic ulcer disease, pyelonephritis, kidney stone, this is not meant to be an all-inclusive list. EKG interpreted by me (3pts min.)? @ -Not obtained X-rays interpreted by me (1pt min.)? @ -X-ray of the lumbar spine obtained. My interpretation identifies no acute fractures. CT interpreted by me (1pt min.)? @ -Not obtained U/S interpreted by me (1pt. min.)? @ -Not obtained What testing was considered but not performed? (CT, X-rays, U/S, labs)? Why? @ -None What meds were considered but not given? Why? @ -None Did you discuss the management of the patient with other professionals? @ -No Did you reconcile home meds? @ -No Was smoking cessation discussed for >3mins.? @ -No Was critical care preformed (if so, how long)? @ -No Were there social determinants of health that impacted care today? How? (Homelessness, low income, unemployed, alcoholism, drug addiction, transportation, low edu. Level, literacy, decrease access to med. care, prison, rehab)? @ -No Was there de-escalation of care discussed even if they declined? (Discuss DNR or withdrawal of care, Hospice)? @ -No What co-morbidities impacted this encounter? (DM, HTN, Smoking, COPD, CAD, Cancer, CVA, Hep., AIDS, mental health diagnosis, sleep apnea, morbid obesity)? @ -None Was patient admitted / discharged? @ -Discharged. X-ray of the lumbar spine obtained revealing degenerative changes without any acute process. Symptoms likely related to a muscular strain as a result of lifting heavy car parts. Symptoms controlled in the emergency department. Prescription for Toradol, Robaxin, and lidocaine patches provided with dosing instructions reviewed. Advised follow-up with her primary care provider. Undiagnosed new problem with uncertain prognosis? @ -None Drug Therapy requiring intensive monitoring for toxicity (Heparin, Nitro, Insulin, Cardizem)? @ -None Were any procedures done? @ -None Diagnosis/symptom? @ -Lumbar strain Acute, or Chronic, or Acute on Chronic? @ -Acute Uncomplicated (without systemic symptoms) or Complicated (systemic symptoms)? @ -Uncomplicated Side effects of treatment? @ -None Exacerbation, Progression, or Severe Exacerbation] @ -Not applicable Poses a threat to life or bodily function? @ -No Return precautions reviewed in depth, the patient is instructed to return to the emergency department with any new, worsening, or concerning symptoms. Patient verbalized understanding. This case was discussed in detail with the attending ED physician, Dr. Varela. Presentation, findings, and treatment plan discussed in detail as well. - Radiology Data Radiology results: report reviewed, image reviewed Disposition Clinical Impression: Strain of lumbar region Disposition: HOME SELF-CARE Instructions (If sedation given, give patient instructions): Low Back Strain (ED), Acute Low Back Pain (ED) Additional Instructions: Return to the emergency department with any new, worsening, or concerning symptoms. Take the Toradol with Tylenol as needed for pain relief. If you choose to take the Toradol, do not take any other anti-inflammatories such as ibuprofen, take one or the other. Take the Robaxin as 1 to 2 tablets up to 3-4 times daily. You can also apply the lidocaine patches daily. Follow up with your primary care provider in 1-2 days. Prescriptions: Lidocaine 5% Patch [Lidoderm 5% Patch] 1 patch TOPICAL DAILY PRN #30 patch PRN Reason: Pain methocarbamoL [Robaxin-750] 1,500 mg PO TID PRN #30 tab PRN Reason: Pain Ketorolac [Toradol] 10 mg PO Q6HR PRN #15 tab PRN Reason: Pain Is patient prescribed a controlled substance at d/c from ED?: No Referrals: Mikie Amor MD [Primary Care Provider] - 1-2 days Time of Disposition: 14:53
--- NOTE | 2023-09-21 14:46 | XR ---
EXAMINATION TYPE: XR lumbar spine 2 or 3V DATE OF EXAM: 09/21/2023 2:07 PM CLINICAL INDICATION:Female, 48 years old with history of Pain; [facility] COMPARISON: None TECHNIQUE: XR lumbar spine 2 or 3V - Frontal, lateral and coned in L5-S1 lateral views of the spine. FINDINGS: No evidence of any acute osseous pathology. No evidence of loss of vertebral body height i s seen. There is normal alignment of the lumbar vertebral bodies. Mild scattered disc space narrowing . Multilevel marginal osteophyte formation throughout the visualized spine. There is facet joint arth ropathy throughout the spine. Scattered at least mild neural foraminal stenosis. IMPRESSION: 1. No acute fracture. 2. Mild multilevel disc degeneration.
[2023-09-21] MEDS: MORPHINE SULFATE 4 MG/ML SYRINGE IVP STA (14:57)
[2023-09-21] MEDS: traMADol 50 MG STARTER PACK 3 TAB BTL PO STA (14:58)
[2023-09-21 15:49] VITALS: BP 145/88; PULSE 81; RESP 18; TEMP 98.2
== END 2023-09-21 15:20 | disposition home or self-care (01) ==
LOC: EC 12:14
DX: S39.012A Strain of muscle, fascia and tendon of lower back, initial encounter (principal); X50.0XXA Overexertion from strenuous movement or load, initial encounter
CPT/HCPCS: 72100; 99284; 96374; 96375 ×3; J2270; J1100; J2360; J1885

== ENCOUNTER 2024-03-14 10:15 | Emergency (ER) | payer MEDICAID ==
[2024-03-14 10:31] VITALS: TEMP 98.3
--- NOTE | 2024-03-14 10:55 | ED ---
Headache HPI - General Chief Complaint: Headache Stated Complaint: headaches Time Seen by Provider: 03/14/24 10:32 Source: patient Mode of arrival: ambulatory Limitations: no limitations - History of Present Illness Initial Comments: This is a 49-year-old female presenting with severe headache (monitoring) x 3 days. Patient states she was sent by her doctor states he due to severity and associated nausea, hot and cold sensation. Patient describes frontal pain as constant pressure. Endorses negative flu test at the doctor's office. Denies [id number] medication use. Endorses history of migraines. Patient denies fever, fatigue, photophobia, phonophobia, dizziness, visual changes, neck stiffness, chest pain, dyspnea, vomiting, diarrhea. MD Complaint: headache Onset/Timin -: days(s) Onset Description: gradual Location: frontal Severity scale (1-10): 9 Quality: throbbing Consistency: constant Improves With: nothing Worsens With: none Context: occurred at rest Associated Symptoms: nausea Treatments Prior to Arrival: none - Related Data Home Medications Medication Instructions Recorded Confirmed Aspirin EC [Ecotrin Low Dose] 81 mg PO DAILY 07/13/18 04/14/22 ARIPiprazole [Abilify] 10 mg PO HS 04/14/22 04/14/22 Cholecalciferol [Vitamin D3 (25 1 tab PO DAILY 04/14/22 04/14/22 Mcg = 1000 Iu)] Venlafaxine HCl [Effexor XR] 225 mg PO QAM 04/14/22 04/14/22 Previous Rx's Medication Instructions Recorded Ketorolac [Toradol] 10 mg PO Q6HR PRN #15 tab 09/21/23 Lidocaine 5% Patch [Lidoderm 5% 1 patch TOPICAL DAILY PRN #30 patch 09/21/23 Patch] methocarbamoL [Robaxin-750] 1,500 mg PO TID PRN #30 tab 09/21/23 Allergies Allergy/AdvReac Type Severity Reaction Status Date / Time No Known Allergies Allergy Verified 03/14/24 10:31 Review of Systems ROS Statement: Those systems with pertinent positive or pertinent negative responses have been documented in the HPI. ROS Other: All systems not noted in ROS Statement are negative. Past Medical History Past Medical History: Asthma Additional Past Medical History / Comment(s): WHEEZING. Scoliosis. Heart murmur History of Any Multi-Drug Resistant Organisms: None Reported Past Surgical History: Appendectomy, Hernia Repair, Tubal Ligation Past Anesthesia/Blood Transfusion Reactions: No Reported Reaction Past Psychological History: Anxiety, Depression, Schizoaffective Disorder Smoking Status: Never smoker Past Alcohol Use History: None Reported Past Drug Use History: None Reported General Exam Limitations: no limitations General appearance: alert, in no apparent distress Head exam: Present: atraumatic, normocephalic, normal inspection Eye exam: Present: normal appearance, PERRL, EOMI. Absent: scleral icterus, conjunctival injection, periorbital swelling ENT exam: Present: normal exam, mucous membranes moist Neck exam: Present: normal inspection. Absent: tenderness, meningismus, lymphadenopathy Respiratory exam: Present: normal lung sounds bilaterally. Absent: respiratory distress, wheezes, rales, rhonchi, stridor Cardiovascular Exam: Present: regular rate, normal rhythm, normal heart sounds. Absent: systolic murmur, diastolic murmur, rubs, gallop, clicks GI/Abdominal exam: Present: soft, normal bowel sounds. Absent: distended, tenderness, guarding, rebound, rigid Extremities exam: Present: normal inspection, full ROM, normal capillary refill. Absent: tenderness, pedal edema, joint swelling, calf tenderness Back exam: Present: normal inspection Neurological exam: Present: alert, oriented X3, CN II-XII intact Psychiatric exam: Present: normal affect, normal mood Skin exam: Present: warm, dry, intact, normal color. Absent: rash Course Vital Signs 03/14/24 03/14/24 10:27 14:59 Temperature 98.3 F Pulse Rate 72 74 Respiratory 18 16 Rate Blood Pressure 152/90 135/84 O2 Sat by Pulse 100 100 Oximetry Medical Decision Making - Medical Decision Making Was pt. sent in by a medical professional or institution (, PA, TERRAZZO HELPER, urgent care, hospital, or usp...) When possible be specific @ -No Did you speak to anyone other than the patient for history (EMS, parent, family, police, friend...)? What history was obtained from this source @ -No Did you review nursing and triage notes (agree or disagree)? Why? @ -I reviewed and agree with nursing and triage notes Were old charts reviewed (outside hosp., previous admission, EMS record, old EKG, old radiological studies, urgent care reports/EKG's, usp records)? Report findings @ -No old charts were reviewed Differential Diagnosis (chest pain, altered mental status, abdominal pain women, abdominal pain men, vaginal bleeding, weakness, fever, dyspnea, syncope, headache, dizziness, GI bleed, back pain, seizure, CVA, palpatations, mental health, musculoskeletal)? @ -Differential Headache: Migraine, tension, cluster, carbon monoxide, central venous thrombosis, pension karma temporal arteritis, acute closure glaucoma, intercranial hemorrhage, mastoiditis, sinusitis, head injury, this is not meant to be an all-inclusive list. EKG interpreted by me (3pts min.). @ -Sinus rhythm without ST changes or T wave inversion. Ventricular rate 71 bpm, YAIMA 176 ms, QRS duration 100 ms, QTc 438 ms. X-rays interpreted by me (1pt min.). @ -None done CT interpreted by me (1pt min.). @ -None done U/S interpreted by me (1pt. min.). @ -None done What testing was considered but not performed or refused? (CT, X-rays, U/S, labs)? Why? @ -None What meds were considered but not given or refused? Why? @ -None Did you discuss the management of the patient with other professionals (professionals i.e. , PA, TERRAZZO HELPER, lab, RT, psych nurse, social sciences lecturer, corporation lawyer, teacher, intelligence officer basic, caser)? Give summary @ -No Was smoking cessation discussed for >3mins.? @ -No Was critical care preformed (if so, how long)? @ -No Were there social determinants of health that impacted care today? How? (Homelessness, low income, unemployed, alcoholism, drug addiction, transportation, low edu. Level, literacy, decrease access to med. care, usp, rehab)? @ -No Was there de-escalation of care discussed even if they declined (Discuss DNR or withdrawal of care, Hospice)? DNR status @ -No What co-morbidities impacted this encounter? (DM, HTN, Smoking, COPD, CAD, Cancer, CVA, ARF, Chemo, Hep., AIDS, mental health diagnosis, sleep apnea, morbid obesity)? @ -None Was patient admitted / discharged? Hospital course, mention meds given and route, prescriptions, significant lab abnormalities, going to OR and other pertinent info. @ -Discharge. Patient initially given migraine cocktail of IM Toradol, Reglan and Benadryl with minimal relief twelve-lead EKG performed and checked before giving droperidol for ongoing symptoms. Patient notes resolution of symptoms after this and was discharged. Undiagnosed new problem with uncertain prognosis? @ -No Drug Therapy requiring intensive monitoring for toxicity (Heparin, Nitro, Insulin, Cardizem)? @ -No Were any procedures done? @ -No Diagnosis/symptom? @ -Migraine Acute, or Chronic, or Acute on Chronic? @ -Acute Uncomplicated (without systemic symptoms) or Complicated (systemic symptoms)? @ -Uncomplicated Side effects of treatment? @ -No Exacerbation, Progression, or Severe Exacerbation? @ -Exacerbation Poses a threat to life or bodily function? How? (Chest pain, [place], [place], pneumonia, PE, COPD, DKA, ARF, appy, cholecystitis, CVA, Diverticulitis, Homicidal, Suicidal, threat to staff... and all critical care pts) @ -No Disposition Clinical Impression: Migraine Disposition: HOME SELF-CARE Condition: Good Instructions (If sedation given, give patient instructions): Migraine Headache (ED) Is patient prescribed a controlled substance at d/c from ED?: No Referrals: Lloyd Burns DO [Primary Care Provider] - 1-2 days Time of Disposition: 14:19
[2024-03-14] MEDS: KETOROLAC 15 MG/ML 1 ML VIAL IM STA (11:12)
[2024-03-14] MEDS: METOCLOPRAMIDE 5 MG/ML 2 ML VIAL IM STA (11:13)
[2024-03-14] MEDS: diphenhydrAMINE 50 MG/ML 1 ML VIAL IM STA (11:13)
[2024-03-14] MEDS ORDERED: METOCLOPRAMIDE 5 MG/ML 2 ML VIAL IM STA (11:46)
[2024-03-14] MEDS ORDERED: KETOROLAC 15 MG/ML 1 ML VIAL IM STA (11:46)
[2024-03-14] MEDS: droPERidol 5 MG/2 ML VIAL IM ONE (13:33)
[2024-03-14] MEDS ORDERED: ONDANSETRON 4 MG ODT STARTER PACK 2 TAB BTL PO STA (14:20)
[2024-03-14 15:01] VITALS: BP 135/84; PULSE 74; RESP 16
== END 2024-03-14 15:01 | disposition home or self-care (01) ==
LOC: EC 10:15
DX: G43.909 Migraine, unspecified, not intractable, without status migrainosus (principal)
CPT/HCPCS: 93005; 99284; 96372 ×4; J1200; J2765; J1885; J1790